=== PATIENT | female | born 1975 | race African-American/Black ===

== ENCOUNTER 2018-09-06 05:35 | Inpatient (IN) | payer BC, MEDICAID ==
[~2018-09-06] VITALS: Ht 170.2 cm; Wt 108.0 kg
[~2018-09-06 05:35] MED LIST: HYDR25TA PO; METF-444 PO
[2018-09-06] MEDS ORDERED: TOPI25 PO (06:07)
[2018-09-06] MEDS ORDERED: LISI-660 PO (06:07)
[2018-09-06] MEDS ORDERED: NITROGLYCERIN 400 MCG/SUBLINGUAL SPRAY 4.9 GM BOTTLE SL ONE (06:45)
[2018-09-06 07:05] LABS: GLUCOSE,POINT OF CARE 106 MG/DL (70-110)
[2018-09-06 07:24] LABS: BASOPHILS % (AUTO) 0.4 % (0.0-2.0); EOSINOPHILS % (AUTO) 5.1 % (1.0-6.0); HEMATOCRIT 38.9 % (36-46); HEMOGLOBIN 12.1 g/dL (12.0-16.0); LYMPHOCYTES # (AUTO) 2.2 K/uL (1.0-4.8); LYMPHOCYTES % (AUTO) 27.9 % (22.0-44.0); MEAN CORPUSCULAR HEMOGLOBIN 26.7 pg (26.0-34.0); MEAN CORPUSCULAR HGB CONC 31.2 G/dL (31.0-37.0); MEAN CORPUSCULAR VOLUME 86 fL (80-100); MONOCYTES # (AUTO) 0.3 K/uL (0.1-1.0); MONOCYTES % (AUTO) 3.4 % (2.0-9.0); NEUTROPHILS # (AUTO) 4.9 K/uL (1.8-7.7); NEUTROPHILS % (AUTO) 63.2 % (40.0-70.0); PLATELET COUNT (AUTO) 305 K/uL (150-450); RED BLOOD CELL COUNT(AUTO) 4.55 MIL/uL (4.00-5.20); RED CELL DISTRIBUTION WIDTH 15.2 % (11.5-14.5)
[2018-09-06] MEDS ORDERED: ONDANSETRON HCL 4 MG/2 ML VIAL IVP ONE (07:30)
[2018-09-06] MEDS ORDERED: MORPHINE SULFATE 2 MG/ML SYRINGE IVP ONE (07:30)
[2018-09-06 07:36] LABS: INR 0.9 (0.9-1.1); PROTHROMBIN TIME 9.4 SEC (9.4-11.6)
[2018-09-06 08:06] LABS: ANION GAP 10 mmol/L (8-16); CALCIUM, TOTAL 9.4 mg/dL (8.8-10.5); CARBON DIOXIDE 21 mmol/L (22-29); CHLORIDE 108 mmol/L (98-107); CREATININE 0.94 mg/dL (0.60-1.30); GLOMERULAR FILTR. RATE CALC > 60 mL/min (>60); GLUCOSE,RANDOM 85 mg/dL (70-110); POTASSIUM 3.7 mmol/L (3.5-5.1); SODIUM SERUM 139 mmol/L (136-145); UREA NITROGEN, BLOOD 14 mg/dL (7-18)
[2018-09-06 08:19] LABS: B-TYPE NATRIURETIC PEPTIDE 12 pg/mL (0-100)
[2018-09-06 08:31] LABS: ALANINE AMINOTRANSFERASE 11 U/L (12-78); ALBUMIN 3.3 g/dL (3.4-5.0); ALKALINE PHOSPHATASE 60 U/L (46-116); ASPARTATE AMINOTRANSFERASE 14 U/L (15-37); BILIRUBIN,TOTAL 0.2 mg/dL (0.1-1.0); CREATINE KINASE, TOTAL ONLY 98 U/L (26-192); HCG,QUANTITATIVE < 1 mIU/mL (0-6); TOTAL PROTEIN, SERUM 7.2 g/dL (6.4-8.2)
[2018-09-06 09:10] LABS: AMPHET/METH SCREEN,URINE POSITIVE (NEGATIVE); BARBITURATE SCREEN, URINE NEGATIVE (NEGATIVE); BENZODIAZEPINES SCREEN,URINE NEGATIVE (NEGATIVE); CANNABINOID SCREEN,URINE NEGATIVE (NEGATIVE); COCAINE SCREEN,URINE NEGATIVE (NEGATIVE); METHADONE SCREEN, URINE NEGATIVE (NEGATIVE); OPIATE SCREEN,URINE POSITIVE (NEGATIVE)
[2018-09-06 09:11] LABS: PHENCYCLIDINE SCREEN,URINE NEGATIVE (NEGATIVE)
[2018-09-06 09:21] LABS: APPEARANCE,URINE CLEAR (CLEAR); BILIRUBIN,URINE NEGATIVE (NEGATIVE); GLUCOSE, URINE (UA) NEGATIVE (NEGATIVE); KETONES,URINE NEGATIVE (NEGATIVE); LEUKOCYTE ESTERASE ,URINE NEGATIVE (NEGATIVE); NITRATE,URINE NEGATIVE (NEGATIVE); OCCULT BLOOD,URINE NEGATIVE (NEGATIVE); PROTEIN,URINE NEGATIVE (NEGATIVE)
[2018-09-06 11:49] VITALS: BP 133/74
[2018-09-06] MEDS ORDERED: ACETAMINOPHEN 325 MG TABLET PO PRN (12:45)
[2018-09-06] MEDS ORDERED: DOCUSATE SODIUM 100 MG CAPSULE PO SCH (21:00)
== END 2018-09-06 12:30 | disposition left against medical advice (07) | DRG 311 ==
LOC: EMS 05:35 → 5S 10:20
PROVIDERS: ADMIT Internal Medicine; ATTEND Internal Medicine
DX: I24.8 Other forms of acute ischemic heart disease (principal); E11.9 Type 2 diabetes mellitus without complications; E66.01 Morbid (severe) obesity due to excess calories; Z53.21 Procedure and treatment not carried out due to patient leaving prior to being seen by health care provider; F15.90 Other stimulant use, unspecified, uncomplicated; I10 Essential (primary) hypertension; I25.10 Atherosclerotic heart disease of native coronary artery without angina pectoris; Z90.49 Acquired absence of other specified parts of digestive tract; Z91.14 Patient's other noncompliance with medication regimen; Z95.5 Presence of coronary angioplasty implant and graft; Z88.1 Allergy status to other antibiotic agents; Z79.899 Other long term (current) drug therapy; Z79.84 Long term (current) use of oral hypoglycemic drugs
CPT/HCPCS: 93005; 93970; 96374; 96375; 99291; G0480; J2270; J2405

== ENCOUNTER 2019-04-09 21:24 | Emergency (ER) | payer SELFPAY ==
[~2019-04-09] VITALS: Ht 170.2 cm; Wt 126.4 kg
[~2019-04-09 21:24] MED LIST changes: -HYDR25TA PO; +LISI-660 PO; +TOPI25 PO
[2019-04-09 21:44] LABS: GLUCOSE,POINT OF CARE 108 MG/DL (70-110)
[2019-04-09] MEDS ORDERED: FUROSEMIDE 40 MG/4 ML VIAL IVP ONE (22:15)
[2019-04-09 22:27] LABS: BASOPHILS % (AUTO) 0.5 % (0.0-2.0); EOSINOPHILS % (AUTO) 2.7 % (1.0-6.0); HEMATOCRIT 33.9 % (36-46); HEMOGLOBIN 10.8 g/dL (12.0-16.0); LYMPHOCYTES # (AUTO) 3.5 K/uL (1.0-4.8); LYMPHOCYTES % (AUTO) 23.5 % (22.0-44.0); MEAN CORPUSCULAR HEMOGLOBIN 25.6 pg (26.0-34.0); MEAN CORPUSCULAR HGB CONC 31.9 G/dL (31.0-37.0); MEAN CORPUSCULAR VOLUME 80 fL (80-100); MONOCYTES # (AUTO) 0.7 K/uL (0.1-1.0); MONOCYTES % (AUTO) 4.7 % (2.0-9.0); NEUTROPHILS # (AUTO) 10.3 K/uL (1.8-7.7); NEUTROPHILS % (AUTO) 68.6 % (40.0-70.0); PLATELET COUNT (AUTO) 353 K/uL (150-450); RED BLOOD CELL COUNT(AUTO) 4.23 MIL/uL (4.00-5.20); RED CELL DISTRIBUTION WIDTH 16.3 % (11.5-14.5)
[2019-04-09 22:34] LABS: ANION GAP 8 mmol/L (8-16); CARBON DIOXIDE 30 mmol/L (22-29); CHLORIDE 100 mmol/L (98-107); CREATININE 1.01 mg/dL (0.60-1.30); GLUCOSE,RANDOM 98 mg/dL (70-110); POTASSIUM 3.9 mmol/L (3.5-5.1); SODIUM SERUM 138 mmol/L (136-145); UREA NITROGEN, BLOOD 12 mg/dL (7-18)
[2019-04-09 22:35] LABS: CALCIUM, TOTAL 9.7 mg/dL (8.8-10.5); GLOMERULAR FILTR. RATE CALC > 60 mL/min (>60)
[2019-04-09 22:40] LABS: ALANINE AMINOTRANSFERASE 41 U/L (12-78); ALBUMIN 2.9 g/dL (3.4-5.0); ALKALINE PHOSPHATASE 192 U/L (46-116); ASPARTATE AMINOTRANSFERASE 24 U/L (15-37); BILIRUBIN,TOTAL 0.2 mg/dL (0.1-1.0); TOTAL PROTEIN, SERUM 7.6 g/dL (6.4-8.2)
[2019-04-09 22:54] LABS: B-TYPE NATRIURETIC PEPTIDE 122 pg/mL (0-100)
[2019-04-09] MEDS ORDERED: SODIUM CHLORIDE 0.9% 100 ML ONE (23:29)
[2019-04-09] MEDS ORDERED: IOVERSOL 350 MG/ML 150 ML VIAL ONE (23:29)
[2019-04-09] MEDS ORDERED: PENICILLIN G BENZATHINE LA 1,200,000 UNITS/2 ML SYRINGE IM ONE (23:30)
[2019-04-10] MEDS ORDERED: RIVAROXABAN 20 MG TABLET PO ONE (01:15)
[2019-04-10 01:38] VITALS: BP 137/90
== END 2019-04-10 02:28 | disposition left against medical advice (07) ==
LOC: EMS 21:24
DX: I11.0 Hypertensive heart disease with heart failure (principal); I50.9 Heart failure, unspecified; J02.0 Streptococcal pharyngitis; R79.1 Abnormal coagulation profile; M79.89 Other specified soft tissue disorders; E11.9 Type 2 diabetes mellitus without complications; Z90.89 Acquired absence of other organs; Z79.899 Other long term (current) drug therapy; Z79.84 Long term (current) use of oral hypoglycemic drugs; Z88.1 Allergy status to other antibiotic agents
CPT/HCPCS: 36415; 71045; 80053; 82962; 83735; 83880; 84484; 85025; 85379; 87430; 93005; 93970; 96372; 96374; 99285; J0561; J1940; J7050; Q9967

== ENCOUNTER → 2019-09-15 | Emergency (ER) | payer MEDICAID ==
[~2019-09-15] VITALS: Ht 170.2 cm; Wt 145.4 kg
[~2019-09-15] MED LIST changes: +ASPI-728 PO; +FURO40 PO
[2019-09-15 16:45] VITALS: BP 137/76
[2019-09-16 08:06] LABS: GLUCOSE,POINT OF CARE 130 MG/DL (70-110)
== END | disposition home or self-care (01) ==
LOC: EMS 16:44
DX: R60.0 Localized edema (principal); Z53.21 Procedure and treatment not carried out due to patient leaving prior to being seen by health care provider

== ENCOUNTER 2019-11-07 20:36 | Emergency (ER) | payer SELFPAY ==
[~2019-11-07] VITALS: Ht 172.7 cm; Wt 185.0 kg
[2019-11-07] MEDS ORDERED: TOPI100T37 PO (20:49)
[2019-11-07] MEDS ORDERED: FURO80 PO (20:49)
[2019-11-07] MEDS ORDERED: MORPHINE SULFATE 2 MG/ML SYRINGE IVP ONE (23:15)
[2019-11-07 23:28] LABS: BASOPHILS % (AUTO) 0.7 % (0.0-2.0); EOSINOPHILS % (AUTO) 3.5 % (1.0-6.0); HEMATOCRIT 35.2 % (36-46); LYMPHOCYTES # (AUTO) 2.5 K/uL (1.0-4.8); LYMPHOCYTES % (AUTO) 26.1 % (22.0-44.0); MEAN CORPUSCULAR HEMOGLOBIN 24.8 pg (26.0-34.0); MEAN CORPUSCULAR HGB CONC 31.2 G/dL (31.0-37.0); MEAN CORPUSCULAR VOLUME 80 fL (80-100); MONOCYTES # (AUTO) 0.5 K/uL (0.1-1.0); NEUTROPHILS # (AUTO) 6.2 K/uL (1.8-7.7); NEUTROPHILS % (AUTO) 64.7 % (40.0-70.0); PLATELET COUNT (AUTO) 359 K/uL (150-450); RED BLOOD CELL COUNT(AUTO) 4.41 MIL/uL (4.00-5.20); RED CELL DISTRIBUTION WIDTH 16.5 % (11.5-14.5)
[2019-11-08 00:12] LABS: ANION GAP 10 mmol/L (8-16); CALCIUM, TOTAL 8.5 mg/dL (8.8-10.5); CARBON DIOXIDE 28 mmol/L (22-29); CHLORIDE 103 mmol/L (98-107); CREATININE 1.05 mg/dL (0.60-1.30); GLOMERULAR FILTR. RATE CALC > 60 mL/min (>60); GLUCOSE,RANDOM 111 mg/dL (70-110); POTASSIUM 3.5 mmol/L (3.5-5.1); SODIUM SERUM 141 mmol/L (136-145); UREA NITROGEN, BLOOD 14 mg/dL (7-18)
[2019-11-08 00:14] LABS: B-TYPE NATRIURETIC PEPTIDE < 5 pg/mL (0-100)
[2019-11-08 00:23] LABS: ALANINE AMINOTRANSFERASE 23 U/L (12-78); ALBUMIN 3.2 g/dL (3.4-5.0); ALKALINE PHOSPHATASE 90 U/L (46-116); ASPARTATE AMINOTRANSFERASE 18 U/L (15-37); BILIRUBIN,TOTAL 0.2 mg/dL (0.1-1.0); HCG,QUANTITATIVE 1 mIU/mL (0-6); TOTAL PROTEIN, SERUM 6.8 g/dL (6.4-8.2)
[2019-11-08] MEDS ORDERED: FUROSEMIDE 40 MG/4 ML VIAL IVP ONE (00:45)
[2019-11-08 03:12] VITALS: BP 137/89
[2019-11-08 03:40] LABS: APPEARANCE,URINE CLEAR (CLEAR); BILIRUBIN,URINE NEGATIVE (NEGATIVE); GLUCOSE, URINE (UA) NEGATIVE (NEGATIVE); KETONES,URINE NEGATIVE (NEGATIVE); LEUKOCYTE ESTERASE ,URINE NEGATIVE (NEGATIVE); NITRATE,URINE NEGATIVE (NEGATIVE); OCCULT BLOOD,URINE LARGE (NEGATIVE); PH,URINE 6.5 (5.0-8.0); PROTEIN,URINE NEGATIVE (NEGATIVE); UROBILINOGEN,URINE 0.2 mg/dL (<=1.0)
[2019-11-08 03:56] LABS: RBC,URINE 51-100 /HPF (0-2)
[2019-11-08 03:57] LABS: BACTERIA,URINE Few /HPF (None Seen); WBC,URINE 0-2 /HPF (0-5)
== END 2019-11-08 03:18 | disposition home or self-care (01) ==
LOC: EMS 20:36
DX: R60.0 Localized edema (principal); F12.90 Cannabis use, unspecified, uncomplicated; F15.90 Other stimulant use, unspecified, uncomplicated; Z88.1 Allergy status to other antibiotic agents; Z79.82 Long term (current) use of aspirin; Z79.899 Other long term (current) drug therapy
CPT/HCPCS: 36415; 71045; 80053; 81001; 82962; 83880; 84484; 84702; 85025; 93005; 96374; 96375; 99285; J1940; J2270

== ENCOUNTER 2020-04-02 05:33 | Inpatient (IN) | payer MEDICAID ==
[~2020-04-02] VITALS: Ht 170.2 cm; Wt 160.0 kg
[~2020-04-02 05:33] MED LIST changes: +ASPI-1450 PO; -ASPI-728 PO; +FURO80 PO; -LISI-660 PO; +LISI-892 PO; +TOPI100T37 PO
[2020-04-02] MEDS ORDERED: LORazepam 2 MG/ML VIAL IVP ONE (05:45)
[2020-04-02] MEDS ORDERED: ACETAMINOPHEN 500 MG TABLET PO ONE (06:00)
[2020-04-02 06:08] LABS: COVID AG,FIA SOURCE NASOPHARYNGEAL
[2020-04-02 06:15] LABS: ANION GAP 10 mmol/L (8-16); CALCIUM, TOTAL 8.9 mg/dL (8.8-10.5); CARBON DIOXIDE 25 mmol/L (22-29); CHLORIDE 103 mmol/L (98-107); CREATININE 1.02 mg/dL (0.60-1.30); GLOMERULAR FILTR. RATE CALC > 60 mL/min (>60); GLUCOSE,RANDOM 141 mg/dL (70-110); POTASSIUM 3.9 mmol/L (3.5-5.1); SODIUM SERUM 138 mmol/L (136-145); UREA NITROGEN, BLOOD 16 mg/dL (7-18)
[2020-04-02 06:20] LABS: ALANINE AMINOTRANSFERASE 25 U/L (12-78); ALBUMIN 3.2 g/dL (3.4-5.0); ALKALINE PHOSPHATASE 119 U/L (46-116); ASPARTATE AMINOTRANSFERASE 16 U/L (15-37); BILIRUBIN,TOTAL 0.2 mg/dL (0.1-1.0); TOTAL PROTEIN, SERUM 7.6 g/dL (6.4-8.2)
[2020-04-02 06:41] LABS: BASOPHILS % (AUTO) 0.9 % (0.0-2.0); EOSINOPHILS % (AUTO) 4.8 % (1.0-6.0); HEMATOCRIT 38.4 % (36-46); LYMPHOCYTES % (AUTO) 35.6 % (22.0-44.0); MEAN CORPUSCULAR HEMOGLOBIN 24.4 pg (26.0-34.0); MEAN CORPUSCULAR HGB CONC 31.1 G/dL (31.0-37.0); MEAN CORPUSCULAR VOLUME 78 fL (80-100); MONOCYTES # (AUTO) 0.5 K/uL (0.1-1.0); NEUTROPHILS # (AUTO) 6.1 K/uL (1.8-7.7); NEUTROPHILS % (AUTO) 54.7 % (40.0-70.0); PLATELET COUNT (AUTO) 375 K/uL (150-450); RED CELL DISTRIBUTION WIDTH 16.8 % (11.5-14.5)
[2020-04-02 07:17] LABS: B-TYPE NATRIURETIC PEPTIDE 23 pg/mL (0-100)
[2020-04-02 07:38] LABS: AMPHET/METH SCREEN,URINE POSITIVE (NEGATIVE); BARBITURATE SCREEN, URINE NEGATIVE (NEGATIVE); BENZODIAZEPINES SCREEN,URINE NEGATIVE (NEGATIVE); CANNABINOID SCREEN,URINE POSITIVE (NEGATIVE); COCAINE SCREEN,URINE NEGATIVE (NEGATIVE); METHADONE SCREEN, URINE NEGATIVE (NEGATIVE); OPIATE SCREEN,URINE NEGATIVE (NEGATIVE); PHENCYCLIDINE SCREEN,URINE NEGATIVE (NEGATIVE)
[2020-04-02 08:18] LABS: APPEARANCE,URINE CLEAR (CLEAR); BILIRUBIN,URINE NEGATIVE (NEGATIVE); GLUCOSE, URINE (UA) NEGATIVE (NEGATIVE); KETONES,URINE NEGATIVE (NEGATIVE); LEUKOCYTE ESTERASE ,URINE NEGATIVE (NEGATIVE); NITRATE,URINE NEGATIVE (NEGATIVE); OCCULT BLOOD,URINE NEGATIVE (NEGATIVE); PH,URINE 6.5 (5.0-8.0); PROTEIN,URINE NEGATIVE (NEGATIVE); UROBILINOGEN,URINE 0.2 mg/dL (<=1.0)
[2020-04-02 08:20] LABS: BACTERIA,URINE None Seen /HPF (None Seen); RBC,URINE None Seen /HPF (0-2); SQUAMOUS EPITHELIAL CELL,UR Few /LPF (None Seen); WBC,URINE None Seen /HPF (0-5)
[2020-04-02] MEDS ORDERED: NITROGLYCERIN 2% (1 GM=INCH) PACKET TP ONE (08:30)
[2020-04-02] MEDS ORDERED: ASPIRIN 325 MG TABLET PO ONE (08:30)
[2020-04-02] MEDS ORDERED: 0.9% SODIUM CHLORIDE 10 ML SYRINGE IVP PRN (09:15)
[2020-04-02] MEDS ORDERED: ACETAMINOPHEN 325 MG TABLET PO PRN ×2 (09:15→11:30)
[2020-04-02] MEDS ORDERED: ONDANSETRON HCL 4 MG/2 ML VIAL IVP PRN ×2 (09:15→11:30)
[2020-04-02] MEDS ORDERED: ZOLPIDEM TARTRATE 5 MG TABLET PO PRN (11:30)
[2020-04-02] MEDS ORDERED: MAGNESIUM HYDROXIDE SUSPENSION 30 ML UDCUP PO PRN (11:30)
[2020-04-02] MEDS ORDERED: MORPHINE SULFATE 2 MG/ML SYRINGE IVP PRN (11:30)
[2020-04-02] MEDS ORDERED: BISACODYL 10 MG RECTAL RECTAL SUPPOSITORY PR PRN (11:30)
[2020-04-02] MEDS ORDERED: GuaiFENesin/D-METHORPHAN [SUGAR-FREE] 200-20MG/10 ML SYRUP UDCUP PO PRN (11:30)
[2020-04-02] MEDS ORDERED: HYDROCODONE/ACETAMINOPHEN 5-325 MG TABLET PO PRN (11:30)
[2020-04-02 11:45] VITALS: BP 143/83
[2020-04-02 12:38] VITALS: BP 143/83
[2020-04-02 15:37] VITALS: BP 136/74
[2020-04-02] MEDS ORDERED: HEPARIN SODIUM,PORCINE 5,000 UNITS/ML VIAL SQ SCH (16:00)
[2020-04-02] MEDS ORDERED: MetFORMIN HCL 500 MG TABLET PO SCH (17:30)
[2020-04-02] MEDS ORDERED: DOCUSATE SODIUM 100 MG CAPSULE PO SCH (21:00)
[2020-04-02] MEDS ORDERED: FUROSEMIDE 80 MG TABLET PO SCH (21:00)
[2020-04-02] MEDS ORDERED: NITROGLYCERIN 2% (1 GM=INCH) PACKET TP SCH (21:00)
[2020-04-02] MEDS ORDERED: TOPIRAMATE 100 MG TABLET PO SCH (21:00)
[2020-04-02] MEDS ORDERED: LISINOPRIL 5 MG TABLET PO SCH (21:00)
[2020-04-03] MEDS ORDERED: ASPIRIN 81 MG CHEWABLE TABLET PO SCH (09:00)
[2020-04-03] MEDS ORDERED: PANTOPRAZOLE SODIUM 40 MG DR TABLET PO SCH (09:00)
== END 2020-04-02 16:40 | disposition left against medical advice (07) | DRG 812 ==
LOC: EMS 05:33 → 5N 10:38
PROVIDERS: ADMIT Internal Medicine; ATTEND Internal Medicine
DX: T43.621A Poisoning by amphetamines, accidental (unintentional), initial encounter (principal); I11.0 Hypertensive heart disease with heart failure; I50.9 Heart failure, unspecified; E66.01 Morbid (severe) obesity due to excess calories; E78.5 Hyperlipidemia, unspecified; I42.9 Cardiomyopathy, unspecified; E11.9 Type 2 diabetes mellitus without complications; I16.0 Hypertensive urgency; F12.90 Cannabis use, unspecified, uncomplicated; I24.8 Other forms of acute ischemic heart disease; F15.10 Other stimulant abuse, uncomplicated; Z20.822 Contact with and (suspected) exposure to COVID-19; I25.10 Atherosclerotic heart disease of native coronary artery without angina pectoris; K21.9 Gastro-esophageal reflux disease without esophagitis; Z79.84 Long term (current) use of oral hypoglycemic drugs; Z79.82 Long term (current) use of aspirin; Z95.5 Presence of coronary angioplasty implant and graft; Z90.49 Acquired absence of other specified parts of digestive tract; Z88.8 Allergy status to other drugs, medicaments and biological substances; Z68.43 Body mass index [BMI] 50.0-59.9, adult; Z79.899 Other long term (current) drug therapy; Y92.89 Other specified places as the place of occurrence of the external cause
CPT/HCPCS: 70450; 82948; 83735; 87426; 93005; 99285; J1644; J2060; 36415-L1; 36415-TC; 71045-TC; 84703-TC; U0003

== ENCOUNTER 2020-05-25 09:27 | Emergency (ER) | payer MEDICAID ==
[~2020-05-25] VITALS: Ht 177.8 cm; Wt 145.4 kg
[~2020-05-25 09:27] MED LIST changes: -FURO40 PO; -TOPI25 PO
[2020-05-25] MEDS ORDERED: LORazepam 2 MG/ML VIAL IVP ONE (09:45)
[2020-05-25 09:58] LABS: GLUCOSE,POINT OF CARE 129 MG/DL (70-110)
[2020-05-25 10:01] LABS: BASOPHILS % (AUTO) 0.9 % (0.0-2.0); EOSINOPHILS % (AUTO) 4.1 % (1.0-6.0); HEMATOCRIT 41.6 % (36-46); HEMOGLOBIN 13.1 g/dL (12.0-16.0); LYMPHOCYTES # (AUTO) 2.9 K/uL (1.0-4.8); LYMPHOCYTES % (AUTO) 25.5 % (22.0-44.0); MEAN CORPUSCULAR HEMOGLOBIN 24.3 pg (26.0-34.0); MEAN CORPUSCULAR HGB CONC 31.4 G/dL (31.0-37.0); MEAN CORPUSCULAR VOLUME 78 fL (80-100); MONOCYTES # (AUTO) 0.5 K/uL (0.1-1.0); MONOCYTES % (AUTO) 4.7 % (2.0-9.0); NEUTROPHILS # (AUTO) 7.4 K/uL (1.8-7.7); NEUTROPHILS % (AUTO) 64.8 % (40.0-70.0); PLATELET COUNT (AUTO) 406 K/uL (150-450); RED BLOOD CELL COUNT(AUTO) 5.37 MIL/uL (4.00-5.20); RED CELL DISTRIBUTION WIDTH 17.1 % (11.5-14.5)
[2020-05-25 10:13] LABS: ANION GAP 14 mmol/L (8-16); CALCIUM, TOTAL 9.4 mg/dL (8.8-10.5); CARBON DIOXIDE 28 mmol/L (22-29); CHLORIDE 98 mmol/L (98-107); CREATININE 1.14 mg/dL (0.60-1.30); GLOMERULAR FILTR. RATE CALC > 60 mL/min (>60); GLUCOSE,RANDOM 130 mg/dL (70-110); POTASSIUM 3.8 mmol/L (3.5-5.1); PROTHROMBIN TIME 10.3 SEC (9.4-11.6); SODIUM SERUM 140 mmol/L (136-145); UREA NITROGEN, BLOOD 21 mg/dL (7-18)
[2020-05-25 10:23] LABS: ALANINE AMINOTRANSFERASE 29 U/L (12-78); ALBUMIN 3.8 g/dL (3.4-5.0); ALKALINE PHOSPHATASE 126 U/L (46-116); ASPARTATE AMINOTRANSFERASE 17 U/L (15-37); BILIRUBIN,TOTAL 0.3 mg/dL (0.1-1.0); HCG,QUANTITATIVE < 1 mIU/mL (0-6); LIPASE 114 U/L (73-393); TOTAL PROTEIN, SERUM 8.5 g/dL (6.4-8.2)
[2020-05-25 11:19] LABS: LACTIC ACID 1.5 mmol/L (0.4-2.0)
[2020-05-25 12:23] LABS: COVID AG,FIA SOURCE NASOPHARYNGEAL
[2020-05-25 12:28] LABS: APPEARANCE,URINE CLEAR (CLEAR); BILIRUBIN,URINE NEGATIVE (NEGATIVE); GLUCOSE, URINE (UA) NEGATIVE (NEGATIVE); KETONES,URINE NEGATIVE (NEGATIVE); LEUKOCYTE ESTERASE ,URINE NEGATIVE (NEGATIVE); NITRATE,URINE NEGATIVE (NEGATIVE); OCCULT BLOOD,URINE NEGATIVE (NEGATIVE); PROTEIN,URINE TRACE (NEGATIVE); UROBILINOGEN,URINE 0.2 mg/dL (<=1.0)
[2020-05-25 12:32] LABS: AMPHET/METH SCREEN,URINE POSITIVE (NEGATIVE); BARBITURATE SCREEN, URINE NEGATIVE (NEGATIVE); BENZODIAZEPINES SCREEN,URINE NEGATIVE (NEGATIVE); CANNABINOID SCREEN,URINE POSITIVE (NEGATIVE); COCAINE SCREEN,URINE NEGATIVE (NEGATIVE); METHADONE SCREEN, URINE NEGATIVE (NEGATIVE); OPIATE SCREEN,URINE NEGATIVE (NEGATIVE)
[2020-05-25 12:33] LABS: PHENCYCLIDINE SCREEN,URINE POSITIVE (NEGATIVE)
[2020-05-25] MEDS ORDERED: LevETIRAcetam 500 MG in DEXTROSE 5%-WATER 100 ML IV ONE (12:45)
[2020-05-25] MEDS ORDERED: KETOROLAC TROMETHAMINE 30 MG/ML VIAL IVP ONE (12:45)
[2020-05-25 13:07] LABS: D-DIMER 0.38 mg/L FEU (0.00-0.50)
[2020-05-25 13:20] VITALS: BP 136/106
[2020-05-25 13:44] LABS: BACTERIA,URINE None Seen /HPF (None Seen); RBC,URINE None Seen /HPF (0-2); SQUAMOUS EPITHELIAL CELL,UR Few /LPF (None Seen); WBC,URINE None Seen /HPF (0-5)
== END 2020-05-25 14:22 | disposition home or self-care (01) ==
LOC: EMS 09:29
DX: R07.9 Chest pain, unspecified (principal); F15.921 Other stimulant use, unspecified with intoxication delirium; I11.0 Hypertensive heart disease with heart failure; I50.9 Heart failure, unspecified; E11.9 Type 2 diabetes mellitus without complications; F17.210 Nicotine dependence, cigarettes, uncomplicated; F12.90 Cannabis use, unspecified, uncomplicated; Z20.822 Contact with and (suspected) exposure to COVID-19; Z90.89 Acquired absence of other organs; Z88.5 Allergy status to narcotic agent; Z79.899 Other long term (current) drug therapy; Z79.82 Long term (current) use of aspirin
CPT/HCPCS: 36415; 70450; 71045; 80053; 80307; 81001; 82962; 83605; 83690; 84484; 84702; 85025; 85379; 85610; 87426; 93005; 96374; 96375; 99291; G0480; J0712; J1885; J2060; J7060; 51701; 82948

== ENCOUNTER 2021-02-01 07:53 | Emergency (ER) | payer MEDICAID ==
[~2021-02-01] VITALS: Ht 170.2 cm; Wt 156.0 kg
[~2021-02-01 07:53] MED LIST changes: -FURO80 PO; -LISI-892 PO
[2021-02-01 09:54] LABS: BASOPHILS % (AUTO) 0.8 % (0.0-2.0); EOSINOPHILS % (AUTO) 4.5 % (1.0-6.0); HEMATOCRIT 35.9 % (36-46); HEMOGLOBIN 11.4 g/dL (12.0-16.0); LYMPHOCYTES # (AUTO) 1.9 K/uL (1.0-4.8); LYMPHOCYTES % (AUTO) 19.6 % (22.0-44.0); MEAN CORPUSCULAR HEMOGLOBIN 24.4 pg (26.0-34.0); MEAN CORPUSCULAR HGB CONC 31.9 G/dL (31.0-37.0); MEAN CORPUSCULAR VOLUME 77 fL (80-100); MONOCYTES # (AUTO) 0.5 K/uL (0.1-1.0); MONOCYTES % (AUTO) 5.1 % (2.0-9.0); NEUTROPHILS # (AUTO) 6.7 K/uL (1.8-7.7); PLATELET COUNT (AUTO) 394 K/uL (150-450); RED BLOOD CELL COUNT(AUTO) 4.69 MIL/uL (4.00-5.20); RED CELL DISTRIBUTION WIDTH 17.8 % (11.5-14.5)
[2021-02-01 10:04] LABS: ANION GAP 8 mmol/L (8-16); CALCIUM, TOTAL 9.4 mg/dL (8.8-10.5); CARBON DIOXIDE 23 mmol/L (22-29); CHLORIDE 108 mmol/L (98-107); GLOMERULAR FILTR. RATE CALC > 60 mL/min (>60); GLUCOSE,RANDOM 105 mg/dL (70-110); POTASSIUM 3.9 mmol/L (3.5-5.1); SODIUM SERUM 139 mmol/L (136-145); UREA NITROGEN, BLOOD 15 mg/dL (7-18)
[2021-02-01 10:15] LABS: ALANINE AMINOTRANSFERASE 31 U/L (12-78); ALKALINE PHOSPHATASE 130 U/L (46-116); ASPARTATE AMINOTRANSFERASE 20 U/L (15-37); BILIRUBIN,TOTAL 0.2 mg/dL (0.1-1.0); LIPASE 92 U/L (73-393); TOTAL PROTEIN, SERUM 7.1 g/dL (6.4-8.2)
[2021-02-01 10:22] LABS: B-TYPE NATRIURETIC PEPTIDE 98 pg/mL (0-100)
[2021-02-01 10:39] LABS: COVID AG,FIA SOURCE NASOPHARYNGEAL
[2021-02-01] MEDS ORDERED: ACETAMINOPHEN 500 MG TABLET PO ONE (10:45)
[2021-02-01] MEDS ORDERED: FUROSEMIDE 40 MG/4 ML VIAL IVP ONE (10:45)
[2021-02-01] MEDS ORDERED: KETOROLAC TROMETHAMINE 30 MG/ML VIAL IVP ONE (10:45)
[2021-02-01 11:00] LABS: INFLUENZA TYPE A NEGATIVE FOR TYPE A (NEGATIVE); INFLUENZA TYPE B NEGATIVE FOR TYPE B (NEGATIVE)
[2021-02-01 11:40] VITALS: BP 157/97
== END 2021-02-01 13:29 | disposition home or self-care (01) ==
LOC: EMS 07:53
DX: R07.89 Other chest pain (principal); F41.9 Anxiety disorder, unspecified; N39.0 Urinary tract infection, site not specified; J06.9 Acute upper respiratory infection, unspecified; E78.00 Pure hypercholesterolemia, unspecified; F17.210 Nicotine dependence, cigarettes, uncomplicated; I11.0 Hypertensive heart disease with heart failure; I50.9 Heart failure, unspecified; F12.90 Cannabis use, unspecified, uncomplicated; F15.90 Other stimulant use, unspecified, uncomplicated; Z86.79 Personal history of other diseases of the circulatory system; Z20.822 Contact with and (suspected) exposure to COVID-19; Z90.49 Acquired absence of other specified parts of digestive tract; Z79.84 Long term (current) use of oral hypoglycemic drugs
CPT/HCPCS: 36415; 71045; 80053; 83690; 83880; 84484; 84703; 85025; 87426; 87804; 93005; 96374; 96375; 99285; G0480; J1885; J1940

== ENCOUNTER 2021-02-05 14:21 | Emergency (ER) | payer MEDICAID ==
[~2021-02-05] VITALS: Ht 172.7 cm; Wt 113.6 kg
[2021-02-05 14:33] VITALS: BP 164/84
== END 2021-02-05 16:18 | disposition left against medical advice (07) ==
LOC: EMS 14:23
DX: N39.0 Urinary tract infection, site not specified (principal); Z53.21 Procedure and treatment not carried out due to patient leaving prior to being seen by health care provider

== ENCOUNTER 2021-02-27 01:48 | Emergency (ER) | payer MEDICAID ==
[~2021-02-27] VITALS: Ht 170.2 cm; Wt 278.0 kg
[2021-02-27] MEDS ORDERED: LEVE250T4 PO (01:57)
[2021-02-27] MEDS ORDERED: FURO40 PO (01:57)
[2021-02-27 03:00] VITALS: BP 137/82
[2021-02-27] MEDS ORDERED: CEPHALEXIN MONOHYDRATE 500 MG CAPSULE PO ONE (03:30)
[2021-02-27] MEDS ORDERED: ACETAMINOPHEN 500 MG TABLET PO ONE (03:30)
[2021-02-27] MEDS ORDERED: NEOMYCIN/POLYMYXIN B/HYDROCORT 10 ML OTIC SUSPENSION AS ONE (03:30)
== END 2021-02-27 03:46 | disposition home or self-care (01) ==
LOC: EMS 01:50
DX: H60.92 Unspecified otitis externa, left ear (principal); H66.92 Otitis media, unspecified, left ear; I11.0 Hypertensive heart disease with heart failure; I50.9 Heart failure, unspecified; E78.00 Pure hypercholesterolemia, unspecified; E11.9 Type 2 diabetes mellitus without complications; F17.210 Nicotine dependence, cigarettes, uncomplicated; F12.90 Cannabis use, unspecified, uncomplicated; F15.90 Other stimulant use, unspecified, uncomplicated; Z88.1 Allergy status to other antibiotic agents; Z79.899 Other long term (current) drug therapy
CPT/HCPCS: 82962; 99284

== ENCOUNTER 2021-04-27 05:30 | Emergency (ER) | payer MEDICAID ==
[~2021-04-27] VITALS: Ht 170.2 cm; Wt 118.2 kg
[~2021-04-27 05:30] MED LIST changes: +FURO40 PO; +LEVE250T4 PO
[2021-04-27 05:54] LABS: BASOPHILS % (AUTO) 0.9 % (0.0-2.0); EOSINOPHILS % (AUTO) 3.1 % (1.0-6.0); HEMOGLOBIN 12.8 g/dL (12.0-16.0); LYMPHOCYTES # (AUTO) 2.7 K/uL (1.0-4.8); LYMPHOCYTES % (AUTO) 22.2 % (22.0-44.0); MEAN CORPUSCULAR HEMOGLOBIN 24.5 pg (26.0-34.0); MEAN CORPUSCULAR VOLUME 76 fL (80-100); MONOCYTES # (AUTO) 0.4 K/uL (0.1-1.0); MONOCYTES % (AUTO) 3.4 % (2.0-9.0); NEUTROPHILS # (AUTO) 8.7 K/uL (1.8-7.7); NEUTROPHILS % (AUTO) 70.4 % (40.0-70.0); PLATELET COUNT (AUTO) 456 K/uL (150-450); RED BLOOD CELL COUNT(AUTO) 5.23 MIL/uL (4.00-5.20)
[2021-04-27 06:01] LABS: ANION GAP 11 mmol/L (8-16); CALCIUM, TOTAL 9.6 mg/dL (8.8-10.5); CARBON DIOXIDE 26 mmol/L (22-29); CHLORIDE 97 mmol/L (98-107); GLOMERULAR FILTR. RATE CALC > 60 mL/min (>60); GLUCOSE,RANDOM 166 mg/dL (70-110); POTASSIUM 3.9 mmol/L (3.5-5.1); SODIUM SERUM 134 mmol/L (136-145); UREA NITROGEN, BLOOD 20 mg/dL (7-18)
[2021-04-27 06:06] LABS: ALANINE AMINOTRANSFERASE 36 U/L (12-78); ALBUMIN 3.4 g/dL (3.4-5.0); ALKALINE PHOSPHATASE 156 U/L (46-116); ASPARTATE AMINOTRANSFERASE 22 U/L (15-37); BILIRUBIN,TOTAL 0.3 mg/dL (0.1-1.0); TOTAL PROTEIN, SERUM 8.4 g/dL (6.4-8.2)
[2021-04-27 06:20] LABS: B-TYPE NATRIURETIC PEPTIDE < 5 pg/mL (0-100)
[2021-04-27 08:00] VITALS: BP 132/85
[2021-04-27 09:20] LABS: APPEARANCE,URINE CLEAR (CLEAR); BILIRUBIN,URINE NEGATIVE (NEGATIVE); GLUCOSE, URINE (UA) NEGATIVE (NEGATIVE); KETONES,URINE NEGATIVE (NEGATIVE); LEUKOCYTE ESTERASE ,URINE TRACE (NEGATIVE); NITRATE,URINE NEGATIVE (NEGATIVE); OCCULT BLOOD,URINE NEGATIVE (NEGATIVE); PH,URINE 6.5 (5.0-8.0); PROTEIN,URINE TRACE mg/dL (NEGATIVE); SPECIFIC GRAVITIY, URINE 1.024 (1.003-1.030); UROBILINOGEN,URINE <=1.0 mg/dL (<=1.0)
[2021-04-27 09:26] LABS: AMPHET/METH SCREEN,URINE POSITIVE (NEGATIVE); BARBITURATE SCREEN, URINE NEGATIVE (NEGATIVE); BENZODIAZEPINES SCREEN,URINE NEGATIVE (NEGATIVE); CANNABINOID SCREEN,URINE NEGATIVE (NEGATIVE); COCAINE SCREEN,URINE NEGATIVE (NEGATIVE); METHADONE SCREEN, URINE NEGATIVE (NEGATIVE); OPIATE SCREEN,URINE NEGATIVE (NEGATIVE)
[2021-04-27 09:36] LABS: PHENCYCLIDINE SCREEN,URINE POSITIVE (NEGATIVE)
[2021-04-27 10:00] LABS: BACTERIA,URINE Few /HPF (None Seen); SQUAMOUS EPITHELIAL CELL,UR Few /LPF (None Seen)
== END 2021-04-27 09:37 | disposition home or self-care (01) ==
LOC: EMS 05:35
DX: R06.00 Dyspnea, unspecified (principal); R06.02 Shortness of breath; R56.9 Unspecified convulsions; I11.0 Hypertensive heart disease with heart failure; I50.9 Heart failure, unspecified; E78.00 Pure hypercholesterolemia, unspecified; F17.210 Nicotine dependence, cigarettes, uncomplicated; F12.90 Cannabis use, unspecified, uncomplicated; F19.90 Other psychoactive substance use, unspecified, uncomplicated; Z90.89 Acquired absence of other organs; Z88.8 Allergy status to other drugs, medicaments and biological substances; Z79.82 Long term (current) use of aspirin; Z79.899 Other long term (current) drug therapy
CPT/HCPCS: 71045; 80053; 81001; 83880; 84484; 84703; 85025; 93005; 99285; 36415-L1; 36415-TC

== ENCOUNTER 2021-06-30 08:25 | Emergency (ER) | payer MEDICAID ==
[~2021-06-30] VITALS: Ht 170.2 cm; Wt 147.3 kg
[2021-06-30 09:13] VITALS: BP 161/93
[2021-06-30] MEDS ORDERED: HYDR-3831 PO (10:04)
[2021-06-30] MEDS ORDERED: NYST15PO4 TP (10:04)
== END 2021-06-30 10:32 | disposition home or self-care (01) ==
LOC: EMS 08:25
DX: R21 Rash and other nonspecific skin eruption (principal); E11.9 Type 2 diabetes mellitus without complications; I10 Essential (primary) hypertension; Z86.69 Personal history of other diseases of the nervous system and sense organs; Z98.890 Other specified postprocedural states; Z88.1 Allergy status to other antibiotic agents
CPT/HCPCS: 87045; 99283

== ENCOUNTER 2021-07-23 10:41 | Emergency (ER) | payer MEDICAID ==
[~2021-07-23] VITALS: Ht 170.2 cm; Wt 147.3 kg
[~2021-07-23 10:41] MED LIST changes: +HYDR-3831 PO; +NYST15PO4 TP
[2021-07-23 12:13] LABS: COVID AG,FIA SOURCE NASAL SWAB
[2021-07-23 12:55] LABS: APPEARANCE,URINE HAZY (CLEAR); BILIRUBIN,URINE NEGATIVE (NEGATIVE); GLUCOSE, URINE (UA) NEGATIVE (NEGATIVE); KETONES,URINE NEGATIVE (NEGATIVE); LEUKOCYTE ESTERASE ,URINE TRACE (NEGATIVE); NITRATE,URINE NEGATIVE (NEGATIVE); OCCULT BLOOD,URINE NEGATIVE (NEGATIVE); PROTEIN,URINE NEGATIVE (NEGATIVE); SPECIFIC GRAVITIY, URINE 1.016 (1.003-1.030); UROBILINOGEN,URINE <=1.0 mg/dL (<=1.0)
[2021-07-23 13:13] LABS: BASOPHILS % (AUTO) 0.8 % (0.0-2.0); EOSINOPHILS % (AUTO) 2.8 % (1.0-6.0); HEMATOCRIT 38.4 % (36-46); HEMOGLOBIN 12.2 g/dL (12.0-16.0); LYMPHOCYTES # (AUTO) 3.4 K/uL (1.0-4.8); MEAN CORPUSCULAR HEMOGLOBIN 24.6 pg (26.0-34.0); MEAN CORPUSCULAR HGB CONC 31.8 G/dL (31.0-37.0); MEAN CORPUSCULAR VOLUME 77 fL (80-100); MONOCYTES # (AUTO) 0.4 K/uL (0.1-1.0); NEUTROPHILS # (AUTO) 6.4 K/uL (1.8-7.7); NEUTROPHILS % (AUTO) 60.4 % (40.0-70.0); PLATELET COUNT (AUTO) 369 K/uL (150-450); RED BLOOD CELL COUNT(AUTO) 4.97 MIL/uL (4.00-5.20); RED CELL DISTRIBUTION WIDTH 17.6 % (11.5-14.5)
[2021-07-23] MEDS ORDERED: NITROGLYCERIN 2% (1 GM=INCH) PACKET TP ONE (13:15)
[2021-07-23] MEDS ORDERED: ASPIRIN 81 MG CHEWABLE TABLET PO ONE (13:15)
[2021-07-23 13:24] LABS: BACTERIA,URINE None Seen /HPF (None Seen); RBC,URINE None Seen /HPF (0-2); SQUAMOUS EPITHELIAL CELL,UR Few /LPF (None Seen)
[2021-07-23 13:25] LABS: AMORPHOUS SEDIMENT,UR Moderate /LPF (None Seen)
[2021-07-23 13:26] LABS: ANION GAP 8 mmol/L (8-16); CALCIUM, TOTAL 9.2 mg/dL (8.8-10.5); CARBON DIOXIDE 25 mmol/L (22-29); CHLORIDE 104 mmol/L (98-107); GLOMERULAR FILTR. RATE CALC > 60 mL/min (>60); GLUCOSE,RANDOM 98 mg/dL (70-110); POTASSIUM 4.3 mmol/L (3.5-5.1); SODIUM SERUM 137 mmol/L (136-145); UREA NITROGEN, BLOOD 13 mg/dL (7-18)
[2021-07-23 13:26] LABS: AMPHET/METH SCREEN,URINE POSITIVE (NEGATIVE); BARBITURATE SCREEN, URINE NEGATIVE (NEGATIVE); BENZODIAZEPINES SCREEN,URINE NEGATIVE (NEGATIVE); CANNABINOID SCREEN,URINE POSITIVE (NEGATIVE); COCAINE SCREEN,URINE NEGATIVE (NEGATIVE); METHADONE SCREEN, URINE NEGATIVE (NEGATIVE); OPIATE SCREEN,URINE NEGATIVE (NEGATIVE); PHENCYCLIDINE SCREEN,URINE POSITIVE (NEGATIVE)
[2021-07-23 13:39] LABS: B-TYPE NATRIURETIC PEPTIDE 97 pg/mL (0-100)
[2021-07-23 13:50] LABS: ALANINE AMINOTRANSFERASE 24 U/L (12-78); ALBUMIN 3.2 g/dL (3.4-5.0); ALKALINE PHOSPHATASE 126 U/L (46-116); ASPARTATE AMINOTRANSFERASE 16 U/L (15-37); BILIRUBIN,TOTAL 0.1 mg/dL (0.1-1.0); CREATINE KINASE, TOTAL ONLY 84 U/L (26-192); TOTAL PROTEIN, SERUM 7.6 g/dL (6.4-8.2)
[2021-07-23 14:20] LABS: HCG,QUANTITATIVE < 1 mIU/mL (0-6)
[2021-07-23] MEDS ORDERED: FUROSEMIDE 40 MG/4 ML VIAL IVP ONE (14:30)
[2021-07-23] MEDS ORDERED: FUROSEMIDE 20 MG TABLET PO ONE (15:30)
[2021-07-23 15:40] VITALS: BP 148/88
== END 2021-07-23 15:41 | disposition home or self-care (01) ==
LOC: EMS 10:52
DX: F15.10 Other stimulant abuse, uncomplicated (principal); F16.10 Hallucinogen abuse, uncomplicated; F41.9 Anxiety disorder, unspecified; I11.0 Hypertensive heart disease with heart failure; I50.9 Heart failure, unspecified; E11.9 Type 2 diabetes mellitus without complications; F17.210 Nicotine dependence, cigarettes, uncomplicated; F12.90 Cannabis use, unspecified, uncomplicated; R11.2 Nausea with vomiting, unspecified; R60.0 Localized edema; Z86.69 Personal history of other diseases of the nervous system and sense organs; Z90.49 Acquired absence of other specified parts of digestive tract; Z98.890 Other specified postprocedural states; Z88.1 Allergy status to other antibiotic agents; Z20.822 Contact with and (suspected) exposure to COVID-19
CPT/HCPCS: 36415; 71045; 80053; 80307; 81001; 82550; 83880; 84484; 84702; 85025; 87426; 93005; 99285; G0480; J1940

== ENCOUNTER 2021-08-25 06:25 | Emergency (ER) | payer MEDICAID ==
[~2021-08-25] VITALS: Ht 170.2 cm; Wt 121.4 kg
[2021-08-25] MEDS ORDERED: OXYC1TAB6 PO (06:50)
[2021-08-25] MEDS ORDERED: BACTDSB PO (06:50)
[2021-08-25] MEDS ORDERED: AMLO5TAB66 PO (06:50)
[2021-08-25 07:01] LABS: COVID AG,FIA SOURCE NASOPHARYNGEAL
[2021-08-25 07:34] LABS: INFLUENZA TYPE A NEGATIVE FOR TYPE A (NEGATIVE); INFLUENZA TYPE B NEGATIVE FOR TYPE B (NEGATIVE)
[2021-08-25] MEDS: KETOROLAC TROMETHAMINE 30 MG/ML VIAL IM ONE (08:09)
[2021-08-25] MEDS: NEOMYCIN/POLYMYXIN B/HYDROCORT 10 ML OTIC SOLUTION AS ONE (08:09)
[2021-08-25] MEDS: PERMETHRIN 5% 60 GM CREAM TP ONE (08:09)
[2021-08-25 08:27] VITALS: BP 150/93
== END 2021-08-25 08:33 | disposition home or self-care (01) ==
LOC: EMS 06:27
DX: H60.92 Unspecified otitis externa, left ear (principal); M77.52 Other enthesopathy of left foot and ankle; B86 Scabies; I11.0 Hypertensive heart disease with heart failure; I50.9 Heart failure, unspecified; E11.9 Type 2 diabetes mellitus without complications; F12.90 Cannabis use, unspecified, uncomplicated; F17.210 Nicotine dependence, cigarettes, uncomplicated; Z88.1 Allergy status to other antibiotic agents; Z79.899 Other long term (current) drug therapy; Z20.822 Contact with and (suspected) exposure to COVID-19
CPT/HCPCS: 99283; 87426; 87804; 96372; J1885

== ENCOUNTER 2021-09-17 13:17 | Inpatient (IN) | payer MEDICAID ==
[~2021-09-17] VITALS: Ht 170.2 cm; Wt 142.7 kg
[~2021-09-17 13:17] MED LIST changes: +AMLO5TAB66 PO; +BACTDSB PO; +OXYC1TAB6 PO
[2021-09-17] MEDS ORDERED: LevETIRAcetam 1,000 MG in DEXTROSE 5%-WATER 100 ML IV ONE (14:15)
[2021-09-17 14:51] LABS: GLUCOSE,POINT OF CARE 104 MG/DL (70-110)
[2021-09-17 15:27] LABS: BASOPHILS % (AUTO) 0.6 % (0.0-2.0); EOSINOPHILS % (AUTO) 3.8 % (1.0-6.0); HEMATOCRIT 38.8 % (36-46); HEMOGLOBIN 12.1 g/dL (12.0-16.0); LYMPHOCYTES # (AUTO) 2.5 K/uL (1.0-4.8); LYMPHOCYTES % (AUTO) 31.2 % (22.0-44.0); MEAN CORPUSCULAR HEMOGLOBIN 24.6 pg (26.0-34.0); MEAN CORPUSCULAR HGB CONC 31.2 G/dL (31.0-37.0); MEAN CORPUSCULAR VOLUME 79 fL (80-100); MONOCYTES # (AUTO) 0.4 K/uL (0.1-1.0); MONOCYTES % (AUTO) 4.5 % (2.0-9.0); NEUTROPHILS # (AUTO) 4.8 K/uL (1.8-7.7); NEUTROPHILS % (AUTO) 59.9 % (40.0-70.0); PLATELET COUNT (AUTO) 337 K/uL (150-450); RED BLOOD CELL COUNT(AUTO) 4.92 MIL/uL (4.00-5.20); RED CELL DISTRIBUTION WIDTH 18.8 % (11.5-14.5)
[2021-09-17 15:51] LABS: ANION GAP 9 mmol/L (8-16); CALCIUM, TOTAL 8.9 mg/dL (8.8-10.5); CARBON DIOXIDE 28 mmol/L (22-29); CHLORIDE 104 mmol/L (98-107); CREATININE 0.85 mg/dL (0.60-1.30); GLUCOSE,RANDOM 99 mg/dL (70-110); POTASSIUM 3.5 mmol/L (3.5-5.1); SODIUM SERUM 141 mmol/L (136-145); UREA NITROGEN, BLOOD 11 mg/dL (7-18)
[2021-09-17 15:54] LABS: GLOMERULAR FILTR. RATE CALC > 60 mL/min (>60)
[2021-09-17 15:57] LABS: ALANINE AMINOTRANSFERASE 15 U/L (12-78); ALBUMIN 3.1 g/dL (3.4-5.0); ALKALINE PHOSPHATASE 101 U/L (46-116); ASPARTATE AMINOTRANSFERASE 13 U/L (15-37); BILIRUBIN,TOTAL 0.2 mg/dL (0.1-1.0); TOTAL PROTEIN, SERUM 6.9 g/dL (6.4-8.2)
[2021-09-17] MEDS ORDERED: SODIUM CHLORIDE 0.9% 1,000 ML IV ONE ×2 (18:15→21:00)
[2021-09-17] MEDS ORDERED: ONDANSETRON HCL 4 MG/2 ML VIAL IVP ONE (20:45)
[2021-09-17] MEDS ORDERED: KETOROLAC TROMETHAMINE 30 MG/ML VIAL IVP ONE (20:45)
[2021-09-17] MEDS ORDERED: ACETAMINOPHEN 325 MG TABLET PO PRN (21:00)
[2021-09-17] MEDS ORDERED: POTASSIUM CHLORIDE 20 MEQ ER TABLET PO PRN (21:00)
[2021-09-17] MEDS ORDERED: POTASSIUM CHL 10 MEQ/WATER 50 ML IV PRN (21:00)
[2021-09-17] MEDS ORDERED: DEXTROSE 50%-WATER 25 GM/50 ML SYRINGE IVP PRN (21:00)
[2021-09-17] MEDS ORDERED: INSULIN LISPRO 100 UNITS/ML SQ PRN (21:00)
[2021-09-17] MEDS ORDERED: AmLODIPine BESYLATE 5 MG TABLET PO SCH (21:00)
[2021-09-17 21:12] LABS: GLUCOMETER DEV NAME(LOC) ERT.5; GLUCOSE,POINT OF CARE 89 MG/DL (70-110)
[2021-09-17] MEDS: DOCUSATE SODIUM 100 MG CAPSULE PO SCH (21:15)
[2021-09-17 21:54] LABS: COVID AG,FIA SOURCE NASAL SWAB
[2021-09-17 22:13] VITALS: BP 131/78
[2021-09-17] MEDS: LORazepam 2 MG/ML VIAL IVP PRN (22:16)
[2021-09-17 23:49] VITALS: BP 146/71
[2021-09-18] MEDS: HEPARIN SODIUM,PORCINE 5,000 UNITS/ML VIAL SQ SCH ×3 (00:32→18:49)
[2021-09-18 04:21] VITALS: BP 127/63
[2021-09-18] MEDS: LevETIRAcetam 500 MG TABLET PO SCH ×2 (05:52→20:12)
[2021-09-18] MEDS: OxyCODONE HCL/ACETAMINOPHEN 5-325 MG TABLET PO PRN (05:53)
[2021-09-18 07:11] LABS: GLUCOMETER DEV NAME(LOC) 5S.2B; GLUCOSE,POINT OF CARE 97 MG/DL (70-110)
[2021-09-18 07:48] VITALS: BP 120/66
[2021-09-18] MEDS: DOCUSATE SODIUM 100 MG CAPSULE PO SCH ×2 (10:19→20:12)
[2021-09-18] MEDS: FAMOTIDINE 20 MG TABLET PO SCH (10:19)
[2021-09-18 11:15] VITALS: BP 124/86
[2021-09-18 13:16] LABS: GLUCOMETER DEV NAME(LOC) 5S.2B; GLUCOSE,POINT OF CARE 125 MG/DL (70-110)
[2021-09-18 15:11] VITALS: BP 128/73
[2021-09-18] MEDS: ONDANSETRON HCL 4 MG/2 ML VIAL IVP PRN (18:16)
[2021-09-18] MEDS ORDERED: LevETIRAcetam 1,500 MG in DEXTROSE 5%-WATER 100 ML IV ONE (20:00)
[2021-09-18] MEDS: AmLODIPine BESYLATE 2.5 MG TABLET PO SCH (20:12)
[2021-09-18 20:41] VITALS: BP 175/94
[2021-09-18 22:00] VITALS: BP 134/90
[2021-09-18] MEDS ORDERED: TOPIRAMATE 100 MG TABLET PO SCH (22:00)
[2021-09-19] VITALS: BP 129/72
[2021-09-19] MEDS: HEPARIN SODIUM,PORCINE 5,000 UNITS/ML VIAL SQ SCH ×3 (00:31→15:25)
[2021-09-19 04:00] VITALS: BP 132/84
[2021-09-19 04:22] LABS: GLUCOMETER DEV NAME(LOC) 5N.1C; GLUCOSE,POINT OF CARE 113 MG/DL (70-110)
[2021-09-19 04:22] LABS: GLUCOMETER DEV NAME(LOC) 5N.1C; GLUCOSE,POINT OF CARE 181 MG/DL (70-110)
[2021-09-19 04:22] LABS: GLUCOMETER DEV NAME(LOC) 5N.1C; GLUCOSE,POINT OF CARE 114 MG/DL (70-110)
[2021-09-19] MEDS: LORazepam 2 MG/ML VIAL IVP PRN (04:39)
[2021-09-19] MEDS ORDERED: LevETIRAcetam 1,000 MG in DEXTROSE 5%-WATER 100 ML IV SCH (06:00)
[2021-09-19] MEDS: WATER IV SCH ×2 (06:15→17:36)
[2021-09-19] MEDS: DEXTROSE 5% IV SCH ×2 (06:15→17:36)
[2021-09-19] MEDS: LEVETIRACETAM IV SCH ×2 (06:15→17:36)
[2021-09-19] MEDS ORDERED: SODIUM CHLORIDE 0.9% 250 ML IV ONE (06:15)
[2021-09-19] MEDS: OxyCODONE HCL/ACETAMINOPHEN 5-325 MG TABLET PO PRN (07:15)
[2021-09-19] MEDS: ONDANSETRON HCL 4 MG/2 ML VIAL IVP PRN (07:15)
[2021-09-19 08:00] VITALS: BP 159/89
[2021-09-19] MEDS: TOPIRAMATE 100 MG TABLET PO SCH ×2 (08:18→21:00)
[2021-09-19] MEDS: FAMOTIDINE 20 MG TABLET PO SCH (08:18)
[2021-09-19] MEDS: DOCUSATE SODIUM 100 MG CAPSULE PO SCH ×2 (08:18→21:00)
[2021-09-19 10:21] LABS: GLUCOSE,POINT OF CARE 108 MG/DL (70-110)
[2021-09-19 12:00] VITALS: BP 157/99
[2021-09-19 12:07] LABS: GLUCOSE,POINT OF CARE 112 MG/DL (70-110)
[2021-09-19 16:00] VITALS: BP 144/57
[2021-09-19 17:17] LABS: GLUCOSE,POINT OF CARE 112 MG/DL (70-110)
[2021-09-19 20:00] VITALS: BP 157/111
[2021-09-19] MEDS ORDERED: LORazepam 2 MG/ML VIAL IVP ONE (20:45)
[2021-09-19 21:02] LABS: BASOPHILS % (AUTO) 0.7 % (0.0-2.0); EOSINOPHILS % (AUTO) 3.7 % (1.0-6.0); HEMATOCRIT 34.8 % (36-46); LYMPHOCYTES % (AUTO) 26.9 % (22.0-44.0); MEAN CORPUSCULAR HEMOGLOBIN 24.6 pg (26.0-34.0); MEAN CORPUSCULAR HGB CONC 31.7 G/dL (31.0-37.0); MEAN CORPUSCULAR VOLUME 78 fL (80-100); MONOCYTES # (AUTO) 0.3 K/uL (0.1-1.0); NEUTROPHILS # (AUTO) 4.9 K/uL (1.8-7.7); NEUTROPHILS % (AUTO) 64.7 % (40.0-70.0); PLATELET COUNT (AUTO) 342 K/uL (150-450); RED BLOOD CELL COUNT(AUTO) 4.49 MIL/uL (4.00-5.20); RED CELL DISTRIBUTION WIDTH 18.9 % (11.5-14.5)
[2021-09-19 21:18] LABS: ALANINE AMINOTRANSFERASE 12 U/L (12-78); ALBUMIN 2.9 g/dL (3.4-5.0); ALKALINE PHOSPHATASE 95 U/L (46-116); ANION GAP 7 mmol/L (8-16); ASPARTATE AMINOTRANSFERASE 14 U/L (15-37); BILIRUBIN,TOTAL 0.1 mg/dL (0.1-1.0); CALCIUM, TOTAL 8.8 mg/dL (8.8-10.5); CARBON DIOXIDE 27 mmol/L (22-29); CHLORIDE 102 mmol/L (98-107); CREATININE 0.85 mg/dL (0.60-1.30); GLOMERULAR FILTR. RATE CALC > 60 mL/min (>60); GLUCOSE,RANDOM 114 mg/dL (70-110); POTASSIUM 4.1 mmol/L (3.5-5.1); SODIUM SERUM 136 mmol/L (136-145); TOTAL PROTEIN, SERUM 6.5 g/dL (6.4-8.2); UREA NITROGEN, BLOOD 12 mg/dL (7-18)
[2021-09-19] MEDS: AmLODIPine BESYLATE 2.5 MG TABLET PO SCH (21:33)
[2021-09-19 23:01] LABS: GLUCOSE,POINT OF CARE 111 MG/DL (70-110)
[2021-09-20] VITALS: BP 158/78
[2021-09-20] MEDS: HEPARIN SODIUM,PORCINE 5,000 UNITS/ML VIAL SQ SCH ×4 (00:28→23:50)
[2021-09-20] MEDS ORDERED: SODIUM CHLORIDE 0.9% 250 ML IV ONE (06:31)
[2021-09-20] MEDS: LEVETIRACETAM IV SCH (06:39)
[2021-09-20] MEDS: DEXTROSE 5% IV SCH (06:39)
[2021-09-20] MEDS: WATER IV SCH (06:39)
[2021-09-20] MEDS: ONDANSETRON HCL 4 MG/2 ML VIAL IVP PRN (07:12)
[2021-09-20] MEDS: OxyCODONE HCL/ACETAMINOPHEN 5-325 MG TABLET PO PRN (07:12)
[2021-09-20 08:00] VITALS: BP 154/94
[2021-09-20] MEDS: TOPIRAMATE 100 MG TABLET PO SCH ×2 (08:18→21:18)
[2021-09-20] MEDS: DOCUSATE SODIUM 100 MG CAPSULE PO SCH ×2 (08:18→20:33)
[2021-09-20] MEDS: FAMOTIDINE 20 MG TABLET PO SCH (08:19)
[2021-09-20 08:21] LABS: GLUCOSE,POINT OF CARE 92 MG/DL (70-110)
[2021-09-20] MEDS: AmLODIPine BESYLATE 5 MG TABLET PO SCH (09:29)
[2021-09-20] MEDS: HYDROXYCHLOROQUINE SULFATE 200 MG TABLET PO SCH ×2 (09:29→21:18)
[2021-09-20 11:46] LABS: GLUCOSE,POINT OF CARE 91 MG/DL (70-110)
[2021-09-20 12:00] VITALS: BP 145/95
[2021-09-20] MEDS ORDERED: LORazepam 2 MG/ML VIAL IVP ONE (12:00)
[2021-09-20 16:04] VITALS: BP 141/99
[2021-09-20] MEDS: MetFORMIN HCL 500 MG TABLET PO SCH (18:00)
[2021-09-20] MEDS ORDERED: LORazepam 2 MG/ML VIAL IM ONE (18:00)
[2021-09-20] MEDS ORDERED: LORazepam 2 MG/ML VIAL IM PRN (18:15)
[2021-09-20] MEDS: LORazepam 2 MG/ML VIAL IVP PRN (18:33)
[2021-09-20 19:47] VITALS: BP 147/93
[2021-09-20] MEDS: AmLODIPine BESYLATE 2.5 MG TABLET PO SCH (20:33)
[2021-09-20] MEDS: LevETIRAcetam 500 MG TABLET PO SCH (20:34)
[2021-09-20 20:50] VITALS: BP 154/78
[2021-09-21] VITALS: BP 150/91
[2021-09-21] MEDS: LORazepam 2 MG/ML VIAL IVP PRN (02:48)
[2021-09-21 04:00] VITALS: BP 170/85
[2021-09-21 08:00] VITALS: BP 156/80
[2021-09-21] MEDS: MetFORMIN HCL 500 MG TABLET PO SCH (08:00)
[2021-09-21] MEDS: FAMOTIDINE 20 MG TABLET PO SCH (08:12)
[2021-09-21] MEDS: HYDROXYCHLOROQUINE SULFATE 200 MG TABLET PO SCH (08:12)
[2021-09-21] MEDS: DOCUSATE SODIUM 100 MG CAPSULE PO SCH (08:12)
[2021-09-21] MEDS: TOPIRAMATE 100 MG TABLET PO SCH (08:12)
[2021-09-21] MEDS: HEPARIN SODIUM,PORCINE 5,000 UNITS/ML VIAL SQ SCH (08:12)
[2021-09-21] MEDS: LevETIRAcetam 500 MG TABLET PO SCH (08:12)
[2021-09-21] MEDS: AmLODIPine BESYLATE 5 MG TABLET PO SCH (08:12)
[2021-09-21 12:07] LABS: GLUCOSE,POINT OF CARE 108 MG/DL (70-110)
[2021-09-22 07:11] LABS: GLUCOMETER DEV NAME(LOC) 5S.1B; GLUCOSE,POINT OF CARE 64 MG/DL (70-110)
[2021-09-22 07:11] LABS: GLUCOMETER DEV NAME(LOC) 5S.1B; GLUCOSE,POINT OF CARE 105 MG/DL (70-110)
[2021-09-22 07:11] LABS: GLUCOMETER DEV NAME(LOC) 5S.1B; GLUCOSE,POINT OF CARE 100 MG/DL (70-110)
== END 2021-09-21 10:00 | disposition left against medical advice (07) | DRG 53 ==
LOC: EMS 13:17 → 5S 21:09 → EDBD 21:09 → MERGE 21:09 → ICU 09-18 21:35 → 5N 09-20 15:30 → ICU 09-20 20:50
PROVIDERS: ADMIT Internal Medicine; ATTEND Internal Medicine
DX: G40.801 Other epilepsy, not intractable, with status epilepticus (principal); M32.9 Systemic lupus erythematosus, unspecified; E66.2 Morbid (severe) obesity with alveolar hypoventilation; F29 Unspecified psychosis not due to a substance or known physiological condition; Z68.43 Body mass index [BMI] 50.0-59.9, adult; E11.9 Type 2 diabetes mellitus without complications; F41.9 Anxiety disorder, unspecified; Z20.822 Contact with and (suspected) exposure to COVID-19; Z53.29 Procedure and treatment not carried out because of patient's decision for other reasons; Z59.00 Homelessness unspecified
CPT/HCPCS: 70450; 80053; 82962; 84703; 85025; 87081; 87086; 99285; G0378; J0712; J1644; J1885; J2060; J2405; J7030; J7050; J7060

== ENCOUNTER 2021-10-22 13:57 | Emergency (ER) | payer MEDICAID ==
[~2021-10-22] VITALS: Ht 172.7 cm; Wt 104.5 kg
[2021-10-22] MEDS ORDERED: ONDANSETRON HCL 4 MG/2 ML VIAL IVP ONE (14:45)
[2021-10-22] MEDS ORDERED: LORazepam 2 MG/ML VIAL IVP ONE (14:45)
[2021-10-22] MEDS ORDERED: SODIUM CHLORIDE 0.9% 1,000 ML IV ONE (14:45)
[2021-10-22 15:01] LABS: GLUCOSE,POINT OF CARE 99 MG/DL (70-110)
[2021-10-22 15:05] LABS: BASOPHILS % (AUTO) 1.2 % (0.0-2.0); EOSINOPHILS % (AUTO) 3.8 % (1.0-6.0); HEMATOCRIT 36.6 % (36-46); HEMOGLOBIN 11.3 g/dL (12.0-16.0); LYMPHOCYTES # (AUTO) 2.9 K/uL (1.0-4.8); LYMPHOCYTES % (AUTO) 29.7 % (22.0-44.0); MEAN CORPUSCULAR HGB CONC 30.8 G/dL (31.0-37.0); MEAN CORPUSCULAR VOLUME 81 fL (80-100); MONOCYTES # (AUTO) 0.4 K/uL (0.1-1.0); MONOCYTES % (AUTO) 4.5 % (2.0-9.0); NEUTROPHILS # (AUTO) 5.8 K/uL (1.8-7.7); NEUTROPHILS % (AUTO) 60.8 % (40.0-70.0); PLATELET COUNT (AUTO) 338 K/uL (150-450); RED BLOOD CELL COUNT(AUTO) 4.52 MIL/uL (4.00-5.20); RED CELL DISTRIBUTION WIDTH 18.3 % (11.5-14.5)
[2021-10-22 15:20] LABS: ANION GAP 8 mmol/L (8-16); CALCIUM, TOTAL 9.5 mg/dL (8.8-10.5); CARBON DIOXIDE 28 mmol/L (22-29); CHLORIDE 105 mmol/L (98-107); CREATININE 0.98 mg/dL (0.60-1.30); GLUCOSE,RANDOM 97 mg/dL (70-110); POTASSIUM 3.5 mmol/L (3.5-5.1); SODIUM SERUM 141 mmol/L (136-145); UREA NITROGEN, BLOOD 14 mg/dL (7-18)
[2021-10-22 15:23] LABS: ALANINE AMINOTRANSFERASE 17 U/L (12-78); ALBUMIN 3.4 g/dL (3.4-5.0); ALKALINE PHOSPHATASE 125 U/L (46-116); ASPARTATE AMINOTRANSFERASE 13 U/L (15-37); BILIRUBIN,TOTAL 0.2 mg/dL (0.1-1.0); TOTAL PROTEIN, SERUM 7.4 g/dL (6.4-8.2)
[2021-10-22 15:24] LABS: GLOMERULAR FILTR. RATE CALC > 60 mL/min (>60)
[2021-10-22 15:47] LABS: HCG,QUANTITATIVE < 1 mIU/mL (0-6)
[2021-10-22] MEDS ORDERED: LEVE500T20 PO ×3 (20:06→20:10)
[2021-10-22] MEDS ORDERED: TOPI100T37 PO (20:10)
[2021-10-22] MEDS ORDERED: ASPI-1450 PO (20:10)
[2021-10-22] MEDS ORDERED: FURO40 PO (20:10)
[2021-10-22] MEDS ORDERED: AMLO5TAB66 PO (20:10)
[2021-10-22] MEDS ORDERED: HYDR-3831 PO (20:10)
[2021-10-22] MEDS ORDERED: ONDANSETRON HCL 4 MG TABLET PO ONE (21:00)
[2021-10-23 05:56] LABS: COVID AG,FIA SOURCE NASAL SWAB
[2021-10-23 06:15] VITALS: BP 149/58
== END 2021-10-22 19:58 | disposition home or self-care (01) ==
LOC: EMS 14:02
DX: G40.509 Epileptic seizures related to external causes, not intractable, without status epilepticus (principal); Z20.822 Contact with and (suspected) exposure to COVID-19; F41.9 Anxiety disorder, unspecified; R11.2 Nausea with vomiting, unspecified; E11.9 Type 2 diabetes mellitus without complications; R42 Dizziness and giddiness
CPT/HCPCS: 80053; 82962; 84702; 85025; 36415; 99284; 96374; 96375; 87426; J2060; J2405; Q0162; J7030; 82948

== ENCOUNTER 2021-11-10 20:56 | Emergency (ER) | payer MEDICAID ==
[~2021-11-10] VITALS: Ht 172.7 cm; Wt 121.8 kg
[~2021-11-10 20:56] MED LIST changes: -BACTDSB PO; -LEVE250T4 PO; +LEVE500T20 PO; -METF-444 PO; -NYST15PO4 TP; -OXYC1TAB6 PO
[2021-11-10 20:59] VITALS: BP 142/84
== END 2021-11-10 23:16 | disposition left against medical advice (07) ==
LOC: EMS 21:26
DX: Z53.21 Procedure and treatment not carried out due to patient leaving prior to being seen by health care provider (principal)

== ENCOUNTER 2021-11-11 15:09 | Emergency (ER) | payer MEDICAID ==
[~2021-11-11] VITALS: Ht 172.7 cm; Wt 121.4 kg
[2021-11-11] MEDS ORDERED: SODIUM CHLORIDE 0.9% 1,000 ML IV ONE (15:45)
[2021-11-11] MEDS ORDERED: ACETAMINOPHEN 1000 MG/ISO-OSM 100 ML IV ONE (15:45)
[2021-11-11 15:49] LABS: BASOPHILS % (AUTO) 0.8 % (0.0-2.0); EOSINOPHILS % (AUTO) 4.1 % (1.0-6.0); HEMATOCRIT 37.5 % (36-46); HEMOGLOBIN 11.6 g/dL (12.0-16.0); LYMPHOCYTES # (AUTO) 3.2 K/uL (1.0-4.8); LYMPHOCYTES % (AUTO) 35.6 % (22.0-44.0); MEAN CORPUSCULAR HGB CONC 30.9 G/dL (31.0-37.0); MEAN CORPUSCULAR VOLUME 81 fL (80-100); MONOCYTES # (AUTO) 0.5 K/uL (0.1-1.0); MONOCYTES % (AUTO) 5.1 % (2.0-9.0); NEUTROPHILS % (AUTO) 54.4 % (40.0-70.0); PLATELET COUNT (AUTO) 320 K/uL (150-450); RED BLOOD CELL COUNT(AUTO) 4.63 MIL/uL (4.00-5.20); RED CELL DISTRIBUTION WIDTH 18.8 % (11.5-14.5)
[2021-11-11 15:56] LABS: ANION GAP 7 mmol/L (8-16); CALCIUM, TOTAL 9.3 mg/dL (8.8-10.5); CARBON DIOXIDE 24 mmol/L (22-29); CHLORIDE 107 mmol/L (98-107); CREATININE 1.08 mg/dL (0.60-1.30); GLOMERULAR FILTR. RATE CALC > 60 mL/min (>60); GLUCOSE,RANDOM 103 mg/dL (70-110); POTASSIUM 3.7 mmol/L (3.5-5.1); SODIUM SERUM 138 mmol/L (136-145); UREA NITROGEN, BLOOD 17 mg/dL (7-18)
[2021-11-11 16:07] LABS: CREATINE KINASE, TOTAL ONLY 263 U/L (26-192)
[2021-11-11 16:45] LABS: COVID AG,FIA SOURCE NASOPHARYNGEAL
[2021-11-11 17:09] VITALS: BP 177/98
[2021-11-11 18:13] LABS: AMPHET/METH SCREEN,URINE POSITIVE (NEGATIVE); BARBITURATE SCREEN, URINE NEGATIVE (NEGATIVE); BENZODIAZEPINES SCREEN,URINE NEGATIVE (NEGATIVE); CANNABINOID SCREEN,URINE POSITIVE (NEGATIVE); COCAINE SCREEN,URINE NEGATIVE (NEGATIVE); METHADONE SCREEN, URINE NEGATIVE (NEGATIVE); OPIATE SCREEN,URINE NEGATIVE (NEGATIVE); PHENCYCLIDINE SCREEN,URINE POSITIVE (NEGATIVE)
== END 2021-11-11 20:50 | disposition home or self-care (01) ==
LOC: EMS 15:09
DX: F15.10 Other stimulant abuse, uncomplicated (principal); Z20.822 Contact with and (suspected) exposure to COVID-19; E11.9 Type 2 diabetes mellitus without complications; F16.10 Hallucinogen abuse, uncomplicated; F10.20 Alcohol dependence, uncomplicated; I10 Essential (primary) hypertension; G40.909 Epilepsy, unspecified, not intractable, without status epilepticus; Z90.49 Acquired absence of other specified parts of digestive tract
CPT/HCPCS: 99284; 96365; 87426; 80048; 82550; 85025; 36415; 82948; 80307; J7030; J0131; 99283

== ENCOUNTER 2021-12-26 01:35 | Emergency (ER) | payer MEDICAID ==
[~2021-12-26] VITALS: Ht 167.6 cm; Wt 143.2 kg
[2021-12-26 02:37] LABS: BASOPHILS % (AUTO) 0.7 % (0.0-2.0); EOSINOPHILS % (AUTO) 3.4 % (1.0-6.0); HEMATOCRIT 37.7 % (36-46); HEMOGLOBIN 11.8 g/dL (12.0-16.0); LYMPHOCYTES # (AUTO) 3.1 K/uL (1.0-4.8); LYMPHOCYTES % (AUTO) 29.7 % (22.0-44.0); MEAN CORPUSCULAR HEMOGLOBIN 24.9 pg (26.0-34.0); MEAN CORPUSCULAR HGB CONC 31.3 G/dL (31.0-37.0); MEAN CORPUSCULAR VOLUME 80 fL (80-100); MONOCYTES # (AUTO) 0.5 K/uL (0.1-1.0); MONOCYTES % (AUTO) 4.9 % (2.0-9.0); NEUTROPHILS # (AUTO) 6.4 K/uL (1.8-7.7); NEUTROPHILS % (AUTO) 61.3 % (40.0-70.0); PLATELET COUNT (AUTO) 376 K/uL (150-450); RED BLOOD CELL COUNT(AUTO) 4.75 MIL/uL (4.00-5.20); RED CELL DISTRIBUTION WIDTH 16.4 % (11.5-14.5)
[2021-12-26 02:53] LABS: COVID AG,FIA SOURCE NASOPHARYNGEAL
[2021-12-26 02:56] LABS: ALANINE AMINOTRANSFERASE 19 U/L (12-78); ALBUMIN 3.2 g/dL (3.4-5.0); ALKALINE PHOSPHATASE 129 U/L (46-116); ANION GAP 6 mmol/L (8-16); ASPARTATE AMINOTRANSFERASE 14 U/L (15-37); BILIRUBIN,TOTAL 0.2 mg/dL (0.1-1.0); CALCIUM, TOTAL 9.7 mg/dL (8.8-10.5); CARBON DIOXIDE 29 mmol/L (22-29); CHLORIDE 101 mmol/L (98-107); CREATININE 0.91 mg/dL (0.60-1.30); GLUCOSE,RANDOM 118 mg/dL (70-110); HCG,QUANTITATIVE < 1 mIU/mL (0-6); POTASSIUM 3.9 mmol/L (3.5-5.1); SODIUM SERUM 136 mmol/L (136-145); TOTAL PROTEIN, SERUM 7.5 g/dL (6.4-8.2); UREA NITROGEN, BLOOD 23 mg/dL (7-18)
[2021-12-26 02:57] LABS: GLOMERULAR FILTR. RATE CALC > 60 mL/min (>60)
[2021-12-26 03:19] LABS: INFLUENZA TYPE A NEGATIVE FOR TYPE A (NEGATIVE); INFLUENZA TYPE B NEGATIVE FOR TYPE B (NEGATIVE)
[2021-12-26 05:01] LABS: APPEARANCE,URINE CLEAR (CLEAR); BILIRUBIN,URINE NEGATIVE (NEGATIVE); GLUCOSE, URINE (UA) NEGATIVE (NEGATIVE); KETONES,URINE NEGATIVE (NEGATIVE); LEUKOCYTE ESTERASE ,URINE NEGATIVE (NEGATIVE); NITRATE,URINE NEGATIVE (NEGATIVE); OCCULT BLOOD,URINE NEGATIVE (NEGATIVE); PH,URINE 6.5 (5.0-8.0); PROTEIN,URINE NEGATIVE (NEGATIVE); SPECIFIC GRAVITIY, URINE 1.014 (1.003-1.030); UROBILINOGEN,URINE <=1.0 mg/dL (<=1.0)
[2021-12-26 05:07] LABS: AMPHET/METH SCREEN,URINE POSITIVE (NEGATIVE); BARBITURATE SCREEN, URINE NEGATIVE (NEGATIVE); BENZODIAZEPINES SCREEN,URINE NEGATIVE (NEGATIVE); CANNABINOID SCREEN,URINE NEGATIVE (NEGATIVE); COCAINE SCREEN,URINE NEGATIVE (NEGATIVE); METHADONE SCREEN, URINE NEGATIVE (NEGATIVE); OPIATE SCREEN,URINE NEGATIVE (NEGATIVE); PHENCYCLIDINE SCREEN,URINE POSITIVE (NEGATIVE)
[2021-12-26 06:34] VITALS: BP 148/76
[2021-12-26] MEDS ORDERED: LISI20TA24 PO (15:47)
[2021-12-26] MEDS ORDERED: DOCU100C33 PO (15:47)
[2021-12-26] MEDS ORDERED: FURO20TA4 PO (15:47)
[2021-12-26] MEDS ORDERED: ESCI10 PO (15:47)
[2021-12-26] MEDS ORDERED: NAPR-1025 PO (15:47)
== END 2021-12-26 07:06 | disposition home or self-care (01) ==
LOC: EMS 01:36
DX: F41.9 Anxiety disorder, unspecified (principal); Z20.822 Contact with and (suspected) exposure to COVID-19; E11.9 Type 2 diabetes mellitus without complications; F10.20 Alcohol dependence, uncomplicated; F15.10 Other stimulant abuse, uncomplicated; F16.10 Hallucinogen abuse, uncomplicated; I10 Essential (primary) hypertension; R50.9 Fever, unspecified; R06.02 Shortness of breath; R11.2 Nausea with vomiting, unspecified; Z90.49 Acquired absence of other specified parts of digestive tract; Z88.5 Allergy status to narcotic agent
CPT/HCPCS: 99285; 71045; 87426; 80053; 81003; 83880; 84484; 84702; 85025; 87804; 36415; 93005; 80307; G0480

== ENCOUNTER 2021-12-26 09:01 | Inpatient (IN) | payer MEDICAID ==
[~2021-12-26] VITALS: Ht 172.7 cm; Wt 135.7 kg
[2021-12-26 09:52] LABS: BASOPHILS % (AUTO) 0.8 % (0.0-2.0); EOSINOPHILS % (AUTO) 2.8 % (1.0-6.0); HEMATOCRIT 39.8 % (36-46); HEMOGLOBIN 12.4 g/dL (12.0-16.0); LYMPHOCYTES # (AUTO) 2.9 K/uL (1.0-4.8); MEAN CORPUSCULAR HEMOGLOBIN 24.9 pg (26.0-34.0); MEAN CORPUSCULAR HGB CONC 31.2 G/dL (31.0-37.0); MEAN CORPUSCULAR VOLUME 80 fL (80-100); MONOCYTES # (AUTO) 0.6 K/uL (0.1-1.0); MONOCYTES % (AUTO) 5.3 % (2.0-9.0); NEUTROPHILS # (AUTO) 7.3 K/uL (1.8-7.7); NEUTROPHILS % (AUTO) 65.1 % (40.0-70.0); PLATELET COUNT (AUTO) 393 K/uL (150-450); RED BLOOD CELL COUNT(AUTO) 4.99 MIL/uL (4.00-5.20); RED CELL DISTRIBUTION WIDTH 16.1 % (11.5-14.5)
[2021-12-26 09:57] LABS: COVID AG,FIA SOURCE NASOPHARYNGEAL
[2021-12-26 10:02] LABS: ANION GAP 7 mmol/L (8-16); CALCIUM, TOTAL 9.8 mg/dL (8.8-10.5); CARBON DIOXIDE 26 mmol/L (22-29); CHLORIDE 101 mmol/L (98-107); CREATININE 0.75 mg/dL (0.60-1.30); GLUCOSE,RANDOM 98 mg/dL (70-110); POTASSIUM 3.9 mmol/L (3.5-5.1); SODIUM SERUM 134 mmol/L (136-145); UREA NITROGEN, BLOOD 19 mg/dL (7-18)
[2021-12-26 10:05] LABS: GLOMERULAR FILTR. RATE CALC > 60 mL/min (>60)
[2021-12-26 10:14] LABS: ALANINE AMINOTRANSFERASE 18 U/L (12-78); ALBUMIN 3.3 g/dL (3.4-5.0); ALKALINE PHOSPHATASE 133 U/L (46-116); ASPARTATE AMINOTRANSFERASE 15 U/L (15-37); BILIRUBIN,TOTAL 0.3 mg/dL (0.1-1.0); HCG,QUANTITATIVE < 1 mIU/mL (0-6); TOTAL PROTEIN, SERUM 7.9 g/dL (6.4-8.2)
[2021-12-26 11:48] LABS: AMPHET/METH SCREEN,URINE POSITIVE (NEGATIVE); BARBITURATE SCREEN, URINE NEGATIVE (NEGATIVE); BENZODIAZEPINES SCREEN,URINE NEGATIVE (NEGATIVE); CANNABINOID SCREEN,URINE NEGATIVE (NEGATIVE); COCAINE SCREEN,URINE NEGATIVE (NEGATIVE); METHADONE SCREEN, URINE NEGATIVE (NEGATIVE); OPIATE SCREEN,URINE NEGATIVE (NEGATIVE)
[2021-12-26 11:51] LABS: PHENCYCLIDINE SCREEN,URINE POSITIVE (NEGATIVE)
[2021-12-26] MEDS ORDERED: LISI20TA24 PO (15:47)
[2021-12-26] MEDS ORDERED: FURO20TA4 PO (15:47)
[2021-12-26] MEDS ORDERED: DOCU100C33 PO (15:47)
[2021-12-26] MEDS ORDERED: ESCI10 PO (15:47)
[2021-12-26] MEDS ORDERED: NAPR-1025 PO (15:47)
[2021-12-26 16:54] VITALS: BP 170/100
[2021-12-26] MEDS: LORazepam 2 MG TABLET PO PRN (17:20)
[2021-12-26] MEDS: HALOPERIDOL 5 MG TABLET PO PRN (18:14)
[2021-12-26 18:20] VITALS: BP 161/104
[2021-12-26] MEDS ORDERED: DEXTROSE 50%-WATER 25 GM/50 ML SYRINGE IVP PRN (19:45)
[2021-12-26] MEDS ORDERED: DOCUSATE SODIUM 100 MG CAPSULE PO PRN (20:30)
[2021-12-26] MEDS ORDERED: ACETAMINOPHEN 325 MG TABLET PO PRN (20:30)
[2021-12-26] MEDS ORDERED: OMEPRAZOLE 20 MG CAPSULE PO PRN (20:30)
[2021-12-26] MEDS ORDERED: MAGNESIUM HYDROXIDE SUSPENSION 30 ML UDCUP PO PRN (20:30)
[2021-12-26] MEDS ORDERED: LOPERAMIDE HCL 2 MG CAPSULE PO PRN (20:30)
[2021-12-26] MEDS ORDERED: BACITRACIN 28 GM OINTMENT TP PRN (20:30)
[2021-12-26] MEDS ORDERED: CloNIDine HCL 0.1 MG TABLET PO PRN (20:30)
[2021-12-26] MEDS ORDERED: ONDANSETRON HCL 4 MG TABLET PO PRN (20:30)
[2021-12-26] MEDS ORDERED: MAG HYDROX/AL HYDROX/SIMETH ES 30 ML SUSPENSION UDCUP PO PRN (20:30)
[2021-12-26] MEDS ORDERED: BENZOCAINE/MENTHOL LOZENGE PO PRN (20:30)
[2021-12-26] MEDS ORDERED: ALBUTEROL SULFATE HFA 90 MCG/PUFF 8 GM INHALER IH PRN (20:30)
[2021-12-26] MEDS ORDERED: PETROLATUM,WHITE 28 GM JELLY TP PRN (20:30)
[2021-12-26] MEDS: ZOLPIDEM TARTRATE 10 MG TABLET PO PRN (20:31)
[2021-12-26] MEDS: INSULIN LISPRO 100 UNITS/ML SQ PRN (21:10)
[2021-12-26 22:30] VITALS: BP 141/82
[2021-12-26 22:31] LABS: GLUCOMETER DEV NAME(LOC) 3E.C; GLUCOSE,POINT OF CARE 148 MG/DL (70-110)
[2021-12-27 06:07] LABS: GLUCOMETER DEV NAME(LOC) 3E.C; GLUCOSE,POINT OF CARE 119 MG/DL (70-110)
[2021-12-27 08:34] VITALS: BP 143/91
[2021-12-27] MEDS: AmLODIPine BESYLATE 5 MG TABLET PO SCH (08:41)
[2021-12-27] MEDS: LORazepam 2 MG TABLET PO PRN ×2 (11:15→20:33)
[2021-12-27 11:26] LABS: GLUCOMETER DEV NAME(LOC) 3E.C; GLUCOSE,POINT OF CARE 114 MG/DL (70-110)
[2021-12-27 14:49] VITALS: BP 156/86
[2021-12-27 16:35] VITALS: BP 157/86
[2021-12-27 17:16] LABS: GLUCOMETER DEV NAME(LOC) 3E.C; GLUCOSE,POINT OF CARE 129 MG/DL (70-110)
[2021-12-27] MEDS: LevETIRAcetam 500 MG TABLET PO SCH (20:32)
[2021-12-27] MEDS: LISINOPRIL 20 MG TABLET PO SCH (20:32)
[2021-12-27] MEDS: TOPIRAMATE 100 MG TABLET PO SCH (20:32)
[2021-12-27] MEDS: HALOPERIDOL 5 MG TABLET PO PRN (20:33)
[2021-12-27 20:36] LABS: GLUCOMETER DEV NAME(LOC) 3E.C; GLUCOSE,POINT OF CARE 113 MG/DL (70-110)
[2021-12-27] MEDS: ZOLPIDEM TARTRATE 10 MG TABLET PO PRN (21:42)
[2021-12-28] MEDS: LORazepam 2 MG TABLET PO PRN ×2 (05:15→11:08)
[2021-12-28 05:36] LABS: GLUCOMETER DEV NAME(LOC) 3E.C; GLUCOSE,POINT OF CARE 148 MG/DL (70-110)
[2021-12-28 06:30] VITALS: BP 163/107
[2021-12-28] MEDS: LevETIRAcetam 500 MG TABLET PO SCH ×2 (08:27→16:21)
[2021-12-28] MEDS: LISINOPRIL 20 MG TABLET PO SCH (08:28)
[2021-12-28] MEDS: AmLODIPine BESYLATE 5 MG TABLET PO SCH (08:28)
[2021-12-28] MEDS: TOPIRAMATE 100 MG TABLET PO SCH ×2 (08:28→16:21)
[2021-12-28] MEDS: FUROSEMIDE 20 MG TABLET PO SCH (08:28)
[2021-12-28] MEDS: ASPIRIN 81 MG CHEWABLE TABLET PO SCH (08:28)
[2021-12-28] MEDS: ESCITALOPRAM OXALATE 10 MG TABLET PO SCH (08:28)
[2021-12-28 08:50] VITALS: BP_SYST 161; BP_SYST 171; BP_DIAS 102; BP_DIAS 92
[2021-12-28 09:59] VITALS: BP 150/100
[2021-12-28 12:29] VITALS: BP 133/84
[2021-12-28 12:31] LABS: GLUCOMETER DEV NAME(LOC) 3E.C; GLUCOSE,POINT OF CARE 121 MG/DL (70-110)
[2021-12-28 16:35] VITALS: BP 157/80
[2021-12-28 17:36] LABS: GLUCOMETER DEV NAME(LOC) 3E.C; GLUCOSE,POINT OF CARE 129 MG/DL (70-110)
[2021-12-28] MEDS: INSULIN LISPRO 100 UNITS/ML SQ PRN (20:14)
[2021-12-28 23:01] LABS: GLUCOMETER DEV NAME(LOC) 3E.C; GLUCOSE,POINT OF CARE 140 MG/DL (70-110)
[2021-12-29 06:11] LABS: GLUCOMETER DEV NAME(LOC) 3E.C; GLUCOSE,POINT OF CARE 113 MG/DL (70-110)
[2021-12-29] MEDS: INSULIN LISPRO 100 UNITS/ML SQ PRN ×3 (06:41→21:08)
[2021-12-29 07:01] LABS: HEMOGLOBIN A1C 6.2 % (3.8-5.6)
[2021-12-29 07:13] LABS: CHOL/HDL RATIO 4.6 (3.9-5.7); FREE T4 (FREE THYROXINE) 1.25 ng/dL (0.76-1.46); THYROID STIMULATING HORMONE 0.73 uIU/mL (0.36-3.74)
[2021-12-29] MEDS: ASPIRIN 81 MG CHEWABLE TABLET PO SCH (08:13)
[2021-12-29] MEDS: HALOPERIDOL 5 MG TABLET PO PRN (08:13)
[2021-12-29] MEDS: LevETIRAcetam 500 MG TABLET PO SCH ×2 (08:13→16:30)
[2021-12-29] MEDS: AmLODIPine BESYLATE 5 MG TABLET PO SCH (08:13)
[2021-12-29] MEDS: ESCITALOPRAM OXALATE 10 MG TABLET PO SCH (08:13)
[2021-12-29] MEDS: FUROSEMIDE 20 MG TABLET PO SCH (08:13)
[2021-12-29] MEDS: LORazepam 2 MG TABLET PO PRN (08:13)
[2021-12-29] MEDS: LISINOPRIL 20 MG TABLET PO SCH (08:13)
[2021-12-29] MEDS: TOPIRAMATE 100 MG TABLET PO SCH ×2 (08:13→16:30)
[2021-12-29 08:48] VITALS: BP 157/100
[2021-12-29 12:01] LABS: GLUCOMETER DEV NAME(LOC) 3E.C; GLUCOSE,POINT OF CARE 117 MG/DL (70-110)
[2021-12-29 16:19] VITALS: BP 131/76
[2021-12-29 16:50] LABS: GLUCOMETER DEV NAME(LOC) 3E.C; GLUCOSE,POINT OF CARE 144 MG/DL (70-110)
[2021-12-29 18:05] VITALS: BP 134/82
[2021-12-29] MEDS: IBUPROFEN 600 MG TABLET PO PRN (18:05)
[2021-12-29 21:11] LABS: GLUCOMETER DEV NAME(LOC) 3E.C; GLUCOSE,POINT OF CARE 106 MG/DL (70-110)
[2021-12-30 06:36] LABS: GLUCOMETER DEV NAME(LOC) 3E.C; GLUCOSE,POINT OF CARE 124 MG/DL (70-110)
[2021-12-30] MEDS: INSULIN LISPRO 100 UNITS/ML SQ PRN (06:39)
[2021-12-30 08:05] VITALS: BP 138/90
[2021-12-30] MEDS: AmLODIPine BESYLATE 5 MG TABLET PO SCH (08:30)
[2021-12-30] MEDS: ESCITALOPRAM OXALATE 10 MG TABLET PO SCH (08:30)
[2021-12-30] MEDS: LISINOPRIL 20 MG TABLET PO SCH (08:30)
[2021-12-30] MEDS: FUROSEMIDE 20 MG TABLET PO SCH (08:30)
[2021-12-30] MEDS: TOPIRAMATE 100 MG TABLET PO SCH ×2 (08:30→16:10)
[2021-12-30] MEDS: ASPIRIN 81 MG CHEWABLE TABLET PO SCH (08:30)
[2021-12-30] MEDS: LevETIRAcetam 500 MG TABLET PO SCH ×2 (08:30→16:10)
[2021-12-30 11:31] LABS: GLUCOMETER DEV NAME(LOC) 3E.C; GLUCOSE,POINT OF CARE 106 MG/DL (70-110)
[2021-12-30 16:30] LABS: GLUCOMETER DEV NAME(LOC) 3E.C; GLUCOSE,POINT OF CARE 131 MG/DL (70-110)
[2021-12-30 16:36] VITALS: BP 161/80
[2021-12-30 20:31] LABS: GLUCOMETER DEV NAME(LOC) 3E.C; GLUCOSE,POINT OF CARE 120 MG/DL (70-110)
[2021-12-31 06:51] LABS: GLUCOMETER DEV NAME(LOC) 3E.C; GLUCOSE,POINT OF CARE 135 MG/DL (70-110)
[2021-12-31 08:28] VITALS: BP 156/86
[2021-12-31] MEDS: TOPIRAMATE 100 MG TABLET PO SCH ×2 (08:29→16:30)
[2021-12-31] MEDS: AmLODIPine BESYLATE 5 MG TABLET PO SCH (08:30)
[2021-12-31] MEDS: LevETIRAcetam 500 MG TABLET PO SCH ×2 (08:30→16:30)
[2021-12-31] MEDS: FUROSEMIDE 20 MG TABLET PO SCH (08:30)
[2021-12-31] MEDS: LISINOPRIL 20 MG TABLET PO SCH (08:30)
[2021-12-31] MEDS: ESCITALOPRAM OXALATE 10 MG TABLET PO SCH (08:30)
[2021-12-31] MEDS: ASPIRIN 81 MG CHEWABLE TABLET PO SCH (08:31)
[2021-12-31 12:06] LABS: GLUCOMETER DEV NAME(LOC) 3E.C; GLUCOSE,POINT OF CARE 105 MG/DL (70-110)
[2021-12-31 16:06] VITALS: BP 151/81
[2021-12-31 17:10] LABS: GLUCOMETER DEV NAME(LOC) 3E.C; GLUCOSE,POINT OF CARE 132 MG/DL (70-110)
[2021-12-31 20:51] LABS: GLUCOMETER DEV NAME(LOC) 3E.C; GLUCOSE,POINT OF CARE 125 MG/DL (70-110)
[2022-01-01 06:47] LABS: COVID AG,FIA SOURCE NASAL SWAB
[2022-01-01 06:51] LABS: GLUCOMETER DEV NAME(LOC) 3E.C; GLUCOSE,POINT OF CARE 134 MG/DL (70-110)
[2022-01-01 08:00] VITALS: BP 139/92
[2022-01-01] MEDS: ASPIRIN 81 MG CHEWABLE TABLET PO SCH (09:10)
[2022-01-01] MEDS: FUROSEMIDE 20 MG TABLET PO SCH (09:10)
[2022-01-01] MEDS: LevETIRAcetam 500 MG TABLET PO SCH ×2 (09:10→16:06)
[2022-01-01] MEDS: LISINOPRIL 20 MG TABLET PO SCH (09:10)
[2022-01-01] MEDS: ESCITALOPRAM OXALATE 10 MG TABLET PO SCH (09:10)
[2022-01-01] MEDS: TOPIRAMATE 100 MG TABLET PO SCH ×2 (09:10→16:06)
[2022-01-01] MEDS: AmLODIPine BESYLATE 5 MG TABLET PO SCH (09:10)
[2022-01-01 11:16] LABS: GLUCOMETER DEV NAME(LOC) 3E.C; GLUCOSE,POINT OF CARE 124 MG/DL (70-110)
[2022-01-01 16:00] VITALS: BP 152/98
[2022-01-01 16:26] LABS: GLUCOMETER DEV NAME(LOC) 3E.C; GLUCOSE,POINT OF CARE 135 MG/DL (70-110)
[2022-01-01] MEDS: LORazepam 2 MG TABLET PO PRN (18:50)
[2022-01-01 21:21] LABS: GLUCOMETER DEV NAME(LOC) 3E.C; GLUCOSE,POINT OF CARE 119 MG/DL (70-110)
[2022-01-01] MEDS: ZOLPIDEM TARTRATE 10 MG TABLET PO PRN (23:37)
[2022-01-02 06:21] LABS: GLUCOMETER DEV NAME(LOC) 3E.C; GLUCOSE,POINT OF CARE 115 MG/DL (70-110)
[2022-01-02] MEDS: FUROSEMIDE 20 MG TABLET PO SCH (09:11)
[2022-01-02] MEDS: LevETIRAcetam 500 MG TABLET PO SCH ×2 (09:11→17:08)
[2022-01-02] MEDS: LISINOPRIL 20 MG TABLET PO SCH (09:11)
[2022-01-02] MEDS: ESCITALOPRAM OXALATE 10 MG TABLET PO SCH (09:11)
[2022-01-02] MEDS: ASPIRIN 81 MG CHEWABLE TABLET PO SCH (09:11)
[2022-01-02] MEDS: AmLODIPine BESYLATE 5 MG TABLET PO SCH (09:11)
[2022-01-02] MEDS: TOPIRAMATE 100 MG TABLET PO SCH ×2 (09:11→17:08)
[2022-01-02 11:24] VITALS: BP 165/85
[2022-01-02 12:01] LABS: GLUCOMETER DEV NAME(LOC) 3E.C; GLUCOSE,POINT OF CARE 115 MG/DL (70-110)
[2022-01-02 16:41] LABS: GLUCOMETER DEV NAME(LOC) 3E.C; GLUCOSE,POINT OF CARE 120 MG/DL (70-110)
[2022-01-02 17:59] VITALS: BP 138/84
[2022-01-02] MEDS: IBUPROFEN 600 MG TABLET PO PRN (17:59)
[2022-01-02] MEDS: LORazepam 2 MG TABLET PO PRN (17:59)
[2022-01-02 18:59] VITALS: BP 134/78
[2022-01-02 20:41] LABS: GLUCOMETER DEV NAME(LOC) 3E.C; GLUCOSE,POINT OF CARE 121 MG/DL (70-110)
[2022-01-02] MEDS: ZOLPIDEM TARTRATE 10 MG TABLET PO PRN (20:58)
[2022-01-03] MEDS: HALOPERIDOL 5 MG TABLET PO PRN ×2 (01:51→15:44)
[2022-01-03] MEDS: INSULIN LISPRO 100 UNITS/ML SQ PRN ×2 (06:33→20:24)
[2022-01-03 06:46] LABS: GLUCOMETER DEV NAME(LOC) 3E.C; GLUCOSE,POINT OF CARE 111 MG/DL (70-110)
[2022-01-03] MEDS: ESCITALOPRAM OXALATE 10 MG TABLET PO SCH (08:26)
[2022-01-03] MEDS: ASPIRIN 81 MG CHEWABLE TABLET PO SCH (08:26)
[2022-01-03] MEDS: LevETIRAcetam 500 MG TABLET PO SCH ×2 (08:26→16:42)
[2022-01-03] MEDS: FUROSEMIDE 20 MG TABLET PO SCH (08:26)
[2022-01-03] MEDS: LISINOPRIL 20 MG TABLET PO SCH (08:26)
[2022-01-03] MEDS: TOPIRAMATE 100 MG TABLET PO SCH ×2 (08:26→16:42)
[2022-01-03] MEDS: AmLODIPine BESYLATE 5 MG TABLET PO SCH (08:26)
[2022-01-03 09:13] VITALS: BP 115/91
[2022-01-03 11:36] LABS: GLUCOMETER DEV NAME(LOC) 3E.C; GLUCOSE,POINT OF CARE 110 MG/DL (70-110)
[2022-01-03] MEDS: LORazepam 2 MG TABLET PO PRN (15:44)
[2022-01-03 15:45] VITALS: BP 122/84
[2022-01-03] MEDS: IBUPROFEN 600 MG TABLET PO PRN (15:45)
[2022-01-03 16:21] LABS: GLUCOMETER DEV NAME(LOC) 3E.C; GLUCOSE,POINT OF CARE 130 MG/DL (70-110)
[2022-01-03 16:45] VITALS: BP 126/82
[2022-01-03] MEDS: ZOLPIDEM TARTRATE 10 MG TABLET PO PRN (20:16)
[2022-01-03 20:31] LABS: GLUCOMETER DEV NAME(LOC) 3E.C; GLUCOSE,POINT OF CARE 151 MG/DL (70-110)
[2022-01-04 06:46] LABS: GLUCOMETER DEV NAME(LOC) 3E.C; GLUCOSE,POINT OF CARE 101 MG/DL (70-110)
[2022-01-04 08:00] VITALS: BP 152/77
[2022-01-04] MEDS: ESCITALOPRAM OXALATE 10 MG TABLET PO SCH (09:00)
[2022-01-04] MEDS: FUROSEMIDE 20 MG TABLET PO SCH (09:00)
[2022-01-04] MEDS: ASPIRIN 81 MG CHEWABLE TABLET PO SCH (09:00)
[2022-01-04] MEDS: LISINOPRIL 20 MG TABLET PO SCH (09:00)
[2022-01-04] MEDS: TOPIRAMATE 100 MG TABLET PO SCH ×2 (09:00→16:21)
[2022-01-04] MEDS: AmLODIPine BESYLATE 5 MG TABLET PO SCH (09:00)
[2022-01-04] MEDS: LevETIRAcetam 500 MG TABLET PO SCH ×2 (09:00→16:22)
[2022-01-04 12:01] LABS: GLUCOMETER DEV NAME(LOC) 3E.C; GLUCOSE,POINT OF CARE 113 MG/DL (70-110)
[2022-01-04] MEDS: INSULIN LISPRO 100 UNITS/ML SQ PRN ×2 (12:41→17:52)
[2022-01-04 16:18] VITALS: BP 129/92
[2022-01-04] MEDS: LORazepam 2 MG TABLET PO PRN (16:21)
[2022-01-04] MEDS: IBUPROFEN 600 MG TABLET PO PRN (16:21)
[2022-01-04] MEDS: HALOPERIDOL 5 MG TABLET PO PRN (16:22)
[2022-01-04 17:36] LABS: GLUCOMETER DEV NAME(LOC) 3E.C; GLUCOSE,POINT OF CARE 107 MG/DL (70-110)
[2022-01-04 20:25] LABS: GLUCOMETER DEV NAME(LOC) 3E.C; GLUCOSE,POINT OF CARE 136 MG/DL (70-110)
[2022-01-05 06:41] LABS: GLUCOMETER DEV NAME(LOC) 3E.C; GLUCOSE,POINT OF CARE 114 MG/DL (70-110)
[2022-01-05 08:50] VITALS: BP 132/71
[2022-01-05] MEDS: IBUPROFEN 600 MG TABLET PO PRN (08:53)
[2022-01-05] MEDS: FUROSEMIDE 20 MG TABLET PO SCH (08:53)
[2022-01-05] MEDS: LORazepam 2 MG TABLET PO PRN ×2 (08:53→17:53)
[2022-01-05] MEDS: LISINOPRIL 20 MG TABLET PO SCH (08:53)
[2022-01-05] MEDS: ESCITALOPRAM OXALATE 10 MG TABLET PO SCH (08:53)
[2022-01-05] MEDS: HALOPERIDOL 5 MG TABLET PO PRN (08:53)
[2022-01-05] MEDS: TOPIRAMATE 100 MG TABLET PO SCH ×2 (08:53→17:47)
[2022-01-05] MEDS: AmLODIPine BESYLATE 5 MG TABLET PO SCH (08:53)
[2022-01-05] MEDS: ASPIRIN 81 MG CHEWABLE TABLET PO SCH (08:53)
[2022-01-05] MEDS: LevETIRAcetam 500 MG TABLET PO SCH ×2 (08:53→17:47)
[2022-01-05 11:51] LABS: GLUCOMETER DEV NAME(LOC) 3E.C; GLUCOSE,POINT OF CARE 73 MG/DL (70-110)
[2022-01-05] MEDS: INSULIN LISPRO 100 UNITS/ML SQ PRN ×2 (12:51→18:15)
[2022-01-05 17:01] VITALS: BP 103/56
[2022-01-05 17:16] LABS: GLUCOMETER DEV NAME(LOC) 3E.C; GLUCOSE,POINT OF CARE 113 MG/DL (70-110)
[2022-01-05 17:57] LABS: GLUCOMETER DEV NAME(LOC) 3E.C; GLUCOSE,POINT OF CARE 101 MG/DL (70-110)
[2022-01-05 18:43] LABS: BASOPHILS % (AUTO) 0.8 % (0.0-2.0); EOSINOPHILS % (AUTO) 3.2 % (1.0-6.0); HEMATOCRIT 45.3 % (36-46); HEMOGLOBIN 14.3 g/dL (12.0-16.0); LYMPHOCYTES # (AUTO) 3.6 K/uL (1.0-4.8); LYMPHOCYTES % (AUTO) 32.6 % (22.0-44.0); MEAN CORPUSCULAR HEMOGLOBIN 25.3 pg (26.0-34.0); MEAN CORPUSCULAR HGB CONC 31.7 G/dL (31.0-37.0); MEAN CORPUSCULAR VOLUME 80 fL (80-100); MONOCYTES # (AUTO) 0.5 K/uL (0.1-1.0); MONOCYTES % (AUTO) 4.8 % (2.0-9.0); NEUTROPHILS # (AUTO) 6.4 K/uL (1.8-7.7); NEUTROPHILS % (AUTO) 58.6 % (40.0-70.0); PLATELET COUNT (AUTO) 394 K/uL (150-450); RED BLOOD CELL COUNT(AUTO) 5.67 MIL/uL (4.00-5.20); RED CELL DISTRIBUTION WIDTH 16.1 % (11.5-14.5)
[2022-01-05 18:53] LABS: ANION GAP 10 mmol/L (8-16); CALCIUM, TOTAL 9.8 mg/dL (8.8-10.5); CARBON DIOXIDE 24 mmol/L (22-29); CHLORIDE 101 mmol/L (98-107); CREATININE 1.02 mg/dL (0.60-1.30); GLUCOSE,RANDOM 131 mg/dL (70-110); POTASSIUM 4.1 mmol/L (3.5-5.1); SODIUM SERUM 135 mmol/L (136-145); UREA NITROGEN, BLOOD 20 mg/dL (7-18)
[2022-01-05 18:55] LABS: GLOMERULAR FILTR. RATE CALC > 60 mL/min (>60)
[2022-01-05 18:58] LABS: ALANINE AMINOTRANSFERASE 33 U/L (12-78); ALBUMIN 3.5 g/dL (3.4-5.0); ALKALINE PHOSPHATASE 141 U/L (46-116); ASPARTATE AMINOTRANSFERASE 21 U/L (15-37); BILIRUBIN,TOTAL 0.1 mg/dL (0.1-1.0); PHOSPHORUS 4.1 mg/dL (2.5-4.9); TOTAL PROTEIN, SERUM 8.2 g/dL (6.4-8.2)
[2022-01-05 20:21] LABS: GLUCOMETER DEV NAME(LOC) 3E.C; GLUCOSE,POINT OF CARE 117 MG/DL (70-110)
[2022-01-06 06:41] LABS: GLUCOMETER DEV NAME(LOC) 3E.C; GLUCOSE,POINT OF CARE 106 MG/DL (70-110)
[2022-01-06] MEDS: TOPIRAMATE 100 MG TABLET PO SCH ×2 (07:57→17:21)
[2022-01-06] MEDS: AmLODIPine BESYLATE 5 MG TABLET PO SCH (07:57)
[2022-01-06] MEDS: FUROSEMIDE 20 MG TABLET PO SCH (07:57)
[2022-01-06] MEDS: LISINOPRIL 20 MG TABLET PO SCH (07:57)
[2022-01-06] MEDS: ESCITALOPRAM OXALATE 10 MG TABLET PO SCH (07:57)
[2022-01-06] MEDS: ASPIRIN 81 MG CHEWABLE TABLET PO SCH (07:58)
[2022-01-06] MEDS: LevETIRAcetam 500 MG TABLET PO SCH ×2 (07:58→17:21)
[2022-01-06 08:11] VITALS: BP 122/78
[2022-01-06 12:26] LABS: GLUCOMETER DEV NAME(LOC) 3E.C; GLUCOSE,POINT OF CARE 134 MG/DL (70-110)
[2022-01-06 16:05] VITALS: BP 131/81
[2022-01-06 17:01] LABS: GLUCOMETER DEV NAME(LOC) 3E.C; GLUCOSE,POINT OF CARE 108 MG/DL (70-110)
[2022-01-06] MEDS ORDERED: ESCI10 PO (17:59)
[2022-01-06] MEDS ORDERED: LEVE500T8 PO ×2 (20:05→20:08)
[2022-01-06 20:35] LABS: GLUCOMETER DEV NAME(LOC) 3E.C; GLUCOSE,POINT OF CARE 146 MG/DL (70-110)
[2022-01-06] MEDS: INSULIN LISPRO 100 UNITS/ML SQ PRN (21:07)
[2022-01-06 23:35] VITALS: BP 135/78
[2022-01-06] MEDS: IBUPROFEN 600 MG TABLET PO PRN (23:41)
[2022-01-06] MEDS: LORazepam 2 MG TABLET PO PRN (23:41)
[2022-01-07] MEDS: ZOLPIDEM TARTRATE 10 MG TABLET PO PRN (02:01)
[2022-01-07 06:46] LABS: GLUCOMETER DEV NAME(LOC) 3E.C; GLUCOSE,POINT OF CARE 128 MG/DL (70-110)
[2022-01-07] MEDS: FUROSEMIDE 20 MG TABLET PO SCH (07:38)
[2022-01-07] MEDS: ESCITALOPRAM OXALATE 10 MG TABLET PO SCH (07:38)
[2022-01-07] MEDS: ASPIRIN 81 MG CHEWABLE TABLET PO SCH (07:39)
[2022-01-07] MEDS: AmLODIPine BESYLATE 5 MG TABLET PO SCH (07:39)
[2022-01-07] MEDS: TOPIRAMATE 100 MG TABLET PO SCH (07:39)
[2022-01-07] MEDS: LISINOPRIL 20 MG TABLET PO SCH (07:39)
[2022-01-07] MEDS: LevETIRAcetam 500 MG TABLET PO SCH (07:39)
== END 2022-01-07 07:55 | disposition home or self-care (01) | DRG 754 ==
LOC: EMS 09:05 → 3EC 16:33
PROVIDERS: ADMIT Psychiatry & Neurology Psychiatry; ATTEND Psychiatry & Neurology Psychiatry
DX: F32.9 Major depressive disorder, single episode, unspecified (principal); E11.9 Type 2 diabetes mellitus without complications; R45.851 Suicidal ideations; G40.909 Epilepsy, unspecified, not intractable, without status epilepticus; F41.9 Anxiety disorder, unspecified; E66.9 Obesity, unspecified; G47.00 Insomnia, unspecified; I10 Essential (primary) hypertension; K21.9 Gastro-esophageal reflux disease without esophagitis; Z20.822 Contact with and (suspected) exposure to COVID-19; K59.00 Constipation, unspecified; Z59.00 Homelessness unspecified; Z83.3 Family history of diabetes mellitus; Z91.14 Patient's other noncompliance with medication regimen; Z82.49 Family history of ischemic heart disease and other diseases of the circulatory system; Z91.199 Patient's noncompliance with other medical treatment and regimen due to unspecified reason; Z79.899 Other long term (current) drug therapy; Z88.8 Allergy status to other drugs, medicaments and biological substances; Z79.82 Long term (current) use of aspirin; Z90.49 Acquired absence of other specified parts of digestive tract
CPT/HCPCS: 80053; 80061; 80201; 82962; 83036; 83735; 84100; 84439; 84443; 84702; 85025; 99285; G0480; G0482

== ENCOUNTER 2022-07-15 03:02 | Emergency (ER) | payer MEDICAID, OTHER ==
[~2022-07-15] VITALS: Ht 167.6 cm; Wt 137.0 kg
[~2022-07-15 03:02] MED LIST changes: +ESCI10 PO; +FURO20TA4 PO; -FURO40 PO; -HYDR-3831 PO; -LEVE500T20 PO; +LEVE500T8 PO; +LISI20TA24 PO
[2022-07-15 03:30] LABS: BASOPHILS % (AUTO) 1.2 % (0.0-2.0); EOSINOPHILS % (AUTO) 5.2 % (1.0-6.0); HEMATOCRIT 39.5 % (36-46); HEMOGLOBIN 12.5 g/dL (12.0-16.0); LYMPHOCYTES # (AUTO) 3.8 K/uL (1.0-4.8); LYMPHOCYTES % (AUTO) 41.7 % (22.0-44.0); MEAN CORPUSCULAR HEMOGLOBIN 25.4 pg (26.0-34.0); MEAN CORPUSCULAR HGB CONC 31.7 G/dL (31.0-37.0); MEAN CORPUSCULAR VOLUME 80 fL (80-100); MONOCYTES # (AUTO) 0.5 K/uL (0.1-1.0); MONOCYTES % (AUTO) 5.1 % (2.0-9.0); NEUTROPHILS # (AUTO) 4.2 K/uL (1.8-7.7); NEUTROPHILS % (AUTO) 46.8 % (40.0-70.0); PLATELET COUNT (AUTO) 371 K/uL (150-450); RED BLOOD CELL COUNT(AUTO) 4.94 MIL/uL (4.00-5.20); RED CELL DISTRIBUTION WIDTH 16.6 % (11.5-14.5)
[2022-07-15 03:40] LABS: ANION GAP 10 mmol/L (8-16); CARBON DIOXIDE 25 mmol/L (22-29); CHLORIDE 103 mmol/L (98-107); GLUCOSE,RANDOM 119 mg/dL (70-110); POTASSIUM 3.9 mmol/L (3.5-5.1); SODIUM SERUM 138 mmol/L (136-145)
[2022-07-15 03:41] LABS: CALCIUM, TOTAL 9.4 mg/dL (8.8-10.5); GLOMERULAR FILTR. RATE CALC > 60 mL/min (>60)
[2022-07-15 03:46] LABS: ALANINE AMINOTRANSFERASE 19 U/L (12-78); ALBUMIN 3.5 g/dL (3.4-5.0); ALKALINE PHOSPHATASE 109 U/L (46-116); ASPARTATE AMINOTRANSFERASE 19 U/L (15-37); BILIRUBIN,TOTAL 0.3 mg/dL (0.1-1.0); CREATINE KINASE, TOTAL ONLY 214 U/L (26-192); TOTAL PROTEIN, SERUM 7.9 g/dL (6.4-8.2)
[2022-07-15 03:48] LABS: B-TYPE NATRIURETIC PEPTIDE 27 pg/mL (0-100)
[2022-07-15 05:37] VITALS: BP 144/76
[2022-07-15 06:06] LABS: LIPASE 84 U/L (73-393)
[2022-07-15 06:40] LABS: APPEARANCE,URINE CLEAR (CLEAR); BILIRUBIN,URINE NEGATIVE (NEGATIVE); GLUCOSE, URINE (UA) NEGATIVE (NEGATIVE); KETONES,URINE NEGATIVE (NEGATIVE); LEUKOCYTE ESTERASE ,URINE NEGATIVE (NEGATIVE); NITRATE,URINE NEGATIVE (NEGATIVE); OCCULT BLOOD,URINE SMALL (NEGATIVE); PH,URINE 7.5 (5.0-8.0); PROTEIN,URINE NEGATIVE (NEGATIVE); SPECIFIC GRAVITIY, URINE 1.012 (1.003-1.030); UROBILINOGEN,URINE <=1.0 mg/dL (<=1.0)
[2022-07-15 06:45] LABS: AMPHET/METH SCREEN,URINE POSITIVE (NEGATIVE); BARBITURATE SCREEN, URINE NEGATIVE (NEGATIVE); BENZODIAZEPINES SCREEN,URINE NEGATIVE (NEGATIVE); CANNABINOID SCREEN,URINE NEGATIVE (NEGATIVE); COCAINE SCREEN,URINE NEGATIVE (NEGATIVE); METHADONE SCREEN, URINE NEGATIVE (NEGATIVE); OPIATE SCREEN,URINE NEGATIVE (NEGATIVE); PHENCYCLIDINE SCREEN,URINE POSITIVE (NEGATIVE)
[2022-07-15] MEDS ORDERED: LORazepam 1 MG TABLET PO ONE (07:00)
[2022-07-15] MEDS ORDERED: MAG HYDROX/AL HYDROX/SIMETH ES 30 ML SUSPENSION UDCUP PO ONE (07:00)
[2022-07-15] MEDS ORDERED: LORazepam 0.5 MG TABLET PO ONE (07:00)
[2022-07-15 07:03] LABS: BACTERIA,URINE None Seen /HPF (None Seen); RBC,URINE 0-2 /HPF (0-2); SQUAMOUS EPITHELIAL CELL,UR Few /LPF (None Seen); WBC,URINE None Seen /HPF (0-5); YEAST,URINE None Seen /HPF (None Seen)
== END 2022-07-15 07:58 | disposition home or self-care (01) ==
LOC: EMS 03:03
DX: F15.10 Other stimulant abuse, uncomplicated (principal); R10.84 Generalized abdominal pain; I11.0 Hypertensive heart disease with heart failure; I50.9 Heart failure, unspecified; E11.9 Type 2 diabetes mellitus without complications; Z90.49 Acquired absence of other specified parts of digestive tract; Z98.890 Other specified postprocedural states
CPT/HCPCS: 99285; 71250; 71045; 80053; 82550; 83690; 83880; 84484; 84703; 85025; 36415; 72192; 74150; 93005; 81001; 80307 ×2; G0480

== ENCOUNTER 2022-07-24 10:06 | Emergency (ER) | payer MEDICAID ==
[~2022-07-24] VITALS: Ht 170.2 cm; Wt 154.1 kg
[2022-07-24] MEDS ORDERED: DiphenhydrAMINE HCL 25 MG CAPSULE PO ONE (12:30)
[2022-07-24] MEDS ORDERED: TOPI100T37 PO (12:44)
[2022-07-24] MEDS ORDERED: AMLO5TAB66 PO (12:44)
[2022-07-24] MEDS ORDERED: DIPH50CA37 PO (12:44)
[2022-07-24] MEDS ORDERED: ESCI10 PO (12:44)
[2022-07-24] MEDS ORDERED: FURO20TA4 PO (12:44)
[2022-07-24] MEDS ORDERED: LISI20TA24 PO (12:44)
[2022-07-24] MEDS ORDERED: LEVE500T8 PO (12:44)
[2022-07-24] MEDS ORDERED: ASPI-1450 PO (12:44)
[2022-07-24] MEDS ORDERED: PERM60CR19 TP (12:44)
[2022-07-24 13:02] VITALS: BP 152/82
== END 2022-07-24 13:06 | disposition still patient (30) ==
LOC: EMS 10:09
DX: L30.9 Dermatitis, unspecified (principal); G40.909 Epilepsy, unspecified, not intractable, without status epilepticus; I11.0 Hypertensive heart disease with heart failure; I50.9 Heart failure, unspecified; E11.9 Type 2 diabetes mellitus without complications; Z90.49 Acquired absence of other specified parts of digestive tract; Z98.890 Other specified postprocedural states; Z88.8 Allergy status to other drugs, medicaments and biological substances
CPT/HCPCS: 99282; Z7502; Z7610

== ENCOUNTER 2022-08-19 03:07 | Emergency (ER) | payer MEDICAID ==
[~2022-08-19] VITALS: Ht 167.6 cm; Wt 137.0 kg
[~2022-08-19 03:07] MED LIST changes: +DIPH50CA37 PO; +PERM60CR19 TP
[2022-08-19 03:23] VITALS: TEMP 97.8
[2022-08-19] MEDS ORDERED: LevETIRAcetam 1,000 MG in DEXTROSE 5%-WATER 100 ML IV ONE (03:45)
[2022-08-19 04:28] LABS: BASOPHILS % (AUTO) 0.9 % (0.0-2.0); EOSINOPHILS % (AUTO) 4.8 % (1.0-6.0); HEMATOCRIT 34.5 % (36-46); HEMOGLOBIN 10.9 g/dL (12.0-16.0); LYMPHOCYTES # (AUTO) 2.5 K/uL (1.0-4.8); LYMPHOCYTES % (AUTO) 26.9 % (22.0-44.0); MEAN CORPUSCULAR HEMOGLOBIN 25.4 pg (26.0-34.0); MEAN CORPUSCULAR HGB CONC 31.5 G/dL (31.0-37.0); MEAN CORPUSCULAR VOLUME 81 fL (80-100); MONOCYTES # (AUTO) 0.5 K/uL (0.1-1.0); NEUTROPHILS # (AUTO) 5.9 K/uL (1.8-7.7); NEUTROPHILS % (AUTO) 62.4 % (40.0-70.0); PLATELET COUNT (AUTO) 290 K/uL (150-450); RED BLOOD CELL COUNT(AUTO) 4.27 MIL/uL (4.00-5.20)
[2022-08-19 04:35] LABS: ANION GAP 10 mmol/L (8-16); CALCIUM, TOTAL 9.1 mg/dL (8.8-10.5); CARBON DIOXIDE 27 mmol/L (22-29); CHLORIDE 103 mmol/L (98-107); CREATININE 0.98 mg/dL (0.60-1.30); GLOMERULAR FILTR. RATE CALC > 60 mL/min (>60); GLUCOSE,RANDOM 108 mg/dL (70-110); POTASSIUM 3.8 mmol/L (3.5-5.1); SODIUM SERUM 140 mmol/L (136-145)
[2022-08-19 04:41] LABS: ALANINE AMINOTRANSFERASE 23 U/L (12-78); ALBUMIN 3.2 g/dL (3.4-5.0); ALKALINE PHOSPHATASE 98 U/L (46-116); ASPARTATE AMINOTRANSFERASE 15 U/L (15-37); BILIRUBIN,TOTAL 0.2 mg/dL (0.1-1.0)
[2022-08-19] MEDS ORDERED: FUROSEMIDE 20 MG TABLET PO ONE (09:00)
[2022-08-19] MEDS ORDERED: LISINOPRIL 10 MG TABLET PO ONE (09:00)
[2022-08-19 10:24] VITALS: BP 176/84; PULSE 76; RESP 16
== END 2022-08-19 16:21 | disposition home or self-care (01) ==
LOC: EMS 03:08
DX: G40.909 Epilepsy, unspecified, not intractable, without status epilepticus (principal); I11.0 Hypertensive heart disease with heart failure; I50.9 Heart failure, unspecified; E11.9 Type 2 diabetes mellitus without complications; Z90.49 Acquired absence of other specified parts of digestive tract; Z98.890 Other specified postprocedural states; Z88.8 Allergy status to other drugs, medicaments and biological substances
CPT/HCPCS: 99291; 96365; 80053; 83880; 84484; 85025; 36415; 93005; J0712; J7060

== ENCOUNTER 2022-11-01 09:08 | Inpatient (IN) | payer MEDICAID ==
[~2022-11-01] VITALS: Ht 172.7 cm; Wt 145.8 kg
[2022-11-01] MEDS ORDERED: AmLODIPine BESYLATE 5 MG TABLET PO ONE (10:15)
[2022-11-01] MEDS ORDERED: LISINOPRIL 10 MG TABLET PO ONE (10:15)
[2022-11-01 11:29] LABS: BASOPHILS % (AUTO) 0.2 % (0.0-2.0); EOSINOPHILS % (AUTO) 5.8 % (1.0-6.0); HEMATOCRIT 35.5 % (36-46); LYMPHOCYTES # (AUTO) 2.7 K/uL (1.0-4.8); LYMPHOCYTES % (AUTO) 28.7 % (22.0-44.0); MEAN CORPUSCULAR HEMOGLOBIN 25.2 pg (26.0-34.0); MEAN CORPUSCULAR HGB CONC 31.1 G/dL (31.0-37.0); MEAN CORPUSCULAR VOLUME 81 fL (80-100); MONOCYTES # (AUTO) 0.4 K/uL (0.1-1.0); MONOCYTES % (AUTO) 4.4 % (2.0-9.0); NEUTROPHILS # (AUTO) 5.7 K/uL (1.8-7.7); NEUTROPHILS % (AUTO) 60.9 % (40.0-70.0); PLATELET COUNT (AUTO) 386 K/uL (150-450); RED BLOOD CELL COUNT(AUTO) 4.38 MIL/uL (4.00-5.20); WHITE BLOOD COUNT (AUTO) 9.3 K/uL (4.5-11.0)
[2022-11-01 11:44] LABS: TROPONIN I-HIGH SENSITIVITY 15 ng/L (<51)
[2022-11-01 11:46] LABS: APPEARANCE,URINE CLEAR (CLEAR); BILIRUBIN,URINE NEGATIVE (NEGATIVE); COLOR,URINE LIGHT YELLOW (YELLOW); GLUCOSE, URINE (UA) NEGATIVE (NEGATIVE); KETONES,URINE NEGATIVE (NEGATIVE); LEUKOCYTE ESTERASE ,URINE NEGATIVE (NEGATIVE); NITRATE,URINE NEGATIVE (NEGATIVE); OCCULT BLOOD,URINE NEGATIVE (NEGATIVE); PROTEIN,URINE NEGATIVE (NEGATIVE); SPECIFIC GRAVITIY, URINE 1.015 (1.003-1.030); UROBILINOGEN,URINE <=1.0 mg/dL (<=1.0)
[2022-11-01 11:46] LABS: B-TYPE NATRIURETIC PEPTIDE 63 pg/mL (0-100)
[2022-11-01 11:49] LABS: INR 0.9 (0.9-1.1); PROTHROMBIN TIME 9.8 SEC (9.4-11.6)
[2022-11-01 11:55] LABS: ANION GAP 4 mmol/L (8-16); CALCIUM, TOTAL 8.9 mg/dL (8.8-10.5); CARBON DIOXIDE 29 mmol/L (22-29); CHLORIDE 104 mmol/L (98-107); CREATININE 0.92 mg/dL (0.60-1.30); GLOMERULAR FILTR. RATE CALC > 60 mL/min (>60); GLUCOSE,RANDOM 96 mg/dL (70-110); POTASSIUM 3.7 mmol/L (3.5-5.1); SODIUM SERUM 137 mmol/L (136-145); UREA NITROGEN, BLOOD 16 mg/dL (7-18)
[2022-11-01 12:19] LABS: ALANINE AMINOTRANSFERASE 23 U/L (12-78); ALKALINE PHOSPHATASE 104 U/L (46-116); ASPARTATE AMINOTRANSFERASE 18 U/L (15-37); BILIRUBIN,TOTAL 0.3 mg/dL (0.1-1.0); CREATINE KINASE, TOTAL ONLY 110 U/L (26-192); TOTAL PROTEIN, SERUM 7.6 g/dL (6.4-8.2)
[2022-11-01] MEDS ORDERED: HydrALAZINE HCL 20 MG/ML VIAL IVP ONE (13:30)
[2022-11-01] MEDS ORDERED: ONDANSETRON HCL 4 MG/2 ML VIAL IVP PRN (13:45)
[2022-11-01] MEDS ORDERED: BISACODYL 10 MG RECTAL RECTAL SUPPOSITORY PR PRN (13:45)
[2022-11-01 13:53] LABS: ABG BASE EXCESS 1.9 mmol/L (-2.0-3.0); ABG CARBOXYHEMOGLOBIN 1.4 % (0.0-1.5); ABG HCO3 25.7 mmol/L (22.0-26.0); ABG METHEMOGLOBIN 0.2 % (0.0-1.5); ABG OXYGEN CONTENT 16.6 mL/dL (15.0-23.0); ABG OXYGEN SATURATION 98.2 % (95.0-98.0); ABG OXYHEMOGLOBIN 96.6 % (94.0-100.0); ABG PCO2 47 mmHg (35-45); ABG TOTAL HEMOGLOBIN 12.1 G/dL (12.0-18.0); ALLEN TEST, BLOOD GAS POS; O2 DEVICE,BLOOD GAS NC (ROOM AIR); PO2, ARTERIAL BG 112.5 mmHg (88.0-96.0); SITE, BLOOD GAS RT BRACHIAL; SOURCE, BLOOD GAS ARTERIAL; TEMPERATURE, FAHRENHEIT, BG 98.4 FAHREN (96.0-98.6)
[2022-11-01] MEDS ORDERED: SODIUM CHLORIDE 0.9% 1,000 ML IV ONE (14:00)
[2022-11-01 14:50] VITALS: PULSE 82; RESP 31; O2SAT 99
[2022-11-01 14:52] VITALS: PULSE 82; RESP 31; O2SAT 99
[2022-11-01 15:04] LABS: COVID AG,FIA SOURCE NASAL SWAB
[2022-11-01] MEDS: HEPARIN SODIUM,PORCINE 5,000 UNITS/ML VIAL SQ SCH (15:06)
[2022-11-01 15:25] LABS: SARS-COV2 (COVID) ANTIGEN,FIA Negative (Negative)
[2022-11-01] MEDS: ACETAMINOPHEN 325 MG TABLET PO PRN (17:43)
[2022-11-01 18:21] LABS: PH,URINE DRUG SCREEN 7.5 (5.0-8.0)
[2022-11-01 18:28] LABS: ALCOHOL, URINE DRUG SCREEN NEGATIVE (NEGATIVE); AMPHET/METH SCREEN,URINE POSITIVE (NEGATIVE); BARBITURATE SCREEN, URINE NEGATIVE (NEGATIVE); BENZODIAZEPINES SCREEN,URINE NEGATIVE (NEGATIVE); CANNABINOID SCREEN,URINE NEGATIVE (NEGATIVE); COCAINE SCREEN,URINE NEGATIVE (NEGATIVE); METHADONE SCREEN, URINE NEGATIVE (NEGATIVE); OPIATE SCREEN,URINE NEGATIVE (NEGATIVE); PHENCYCLIDINE SCREEN,URINE POSITIVE (NEGATIVE)
[2022-11-01] MEDS ORDERED: PNEUMOCOCCAL VACCINE POLYVALENT 0.5 ML SYRINGE [PPSV23] IM. ONE (22:15)
[2022-11-02] VITALS (8 sets, daily range): BP systolic 111–184; BP diastolic 54–106; PULSE 85–89; RESP 18–20; TEMP 97.7–98.6
[2022-11-02] MEDS: HEPARIN SODIUM,PORCINE 5,000 UNITS/ML VIAL SQ SCH ×4 (00:23→23:01)
[2022-11-02] MEDS: ACETAMINOPHEN 325 MG TABLET PO PRN ×2 (01:47→14:18)
[2022-11-02] MEDS ORDERED: DiphenhydrAMINE HCL 50 MG/ML VIAL IVP ONE (04:45)
[2022-11-02] MEDS: HydrALAZINE HCL 10 MG TABLET PO PRN ×2 (05:00→16:52)
[2022-11-02] MEDS ORDERED: PANTOPRAZOLE SODIUM 40 MG/VIAL IVP SCH (09:00)
[2022-11-02 09:07] LABS: GLUCOMETER DEV NAME(LOC) 5N.2C; GLUCOSE,POINT OF CARE 112 MG/DL (70-110)
[2022-11-02 14:16] LABS: GLUCOMETER DEV NAME(LOC) 5S.1B; GLUCOSE,POINT OF CARE 110 MG/DL (70-110)
[2022-11-02 20:21] LABS: GLUCOMETER DEV NAME(LOC) 5S.2C; GLUCOSE,POINT OF CARE 119 MG/DL (70-110)
[2022-11-02 21:01] LABS: GLUCOMETER DEV NAME(LOC) 6S.1B; GLUCOSE,POINT OF CARE 116 MG/DL (70-110)
[2022-11-03 05:35] VITALS: BP 161/75; PULSE 87; RESP 19; TEMP 98.1
[2022-11-03 05:41] LABS: GLUCOMETER DEV NAME(LOC) 6N.2B; GLUCOSE,POINT OF CARE 126 MG/DL (70-110)
[2022-11-03 08:00] VITALS: BP 129/75; PULSE 89; RESP 20; TEMP 98.4
[2022-11-03] MEDS: HEPARIN SODIUM,PORCINE 5,000 UNITS/ML VIAL SQ SCH ×2 (08:38→16:00)
[2022-11-03] MEDS ORDERED: PANTOPRAZOLE SODIUM 40 MG DR TABLET PO SCH ×2 (09:00)
[2022-11-03] MEDS ORDERED: FURO20TA4 PO (13:11)
[2022-11-03] MEDS ORDERED: AMLO5TAB66 PO (13:11)
[2022-11-03] MEDS ORDERED: LISI20TA24 PO (13:11)
[2022-11-03] MEDS ORDERED: ASPI-1450 PO (13:11)
[2022-11-03] MEDS ORDERED: GUAIFDM PO (13:12)
[2022-11-03] MEDS ORDERED: AZIT250T9 PO (13:12)
[2022-11-03 17:12] LABS: GLUCOMETER DEV NAME(LOC) 6N.2B; GLUCOSE,POINT OF CARE 99 MG/DL (70-110)
[2022-11-06] MEDS ORDERED: METF-1211 PO (09:21)
[2022-11-06] MEDS ORDERED: LEVE500T20 PO (09:21)
[2022-11-06] MEDS ORDERED: ESCI-8 PO (13:43)
[2022-11-09] MEDS ORDERED: AMOX1TAB15 PO (10:42)
== END 2022-11-03 16:50 | disposition home or self-care (01) | DRG 52 ==
LOC: EMS 09:11 → AHU 15:23 → 5S 18:32 → 6S 11-02 20:18
PROVIDERS: ADMIT Internal Medicine; ATTEND Internal Medicine
PROC: 5A09357 Assistance with Respiratory Ventilation, Less than 24 Consecutive Hours, Continuous Positive Airway Pressure (ICD-10-PCS; principal; 2022-11-01)
DX: G92.8 Other toxic encephalopathy (principal); M32.9 Systemic lupus erythematosus, unspecified; I50.9 Heart failure, unspecified; E11.9 Type 2 diabetes mellitus without complications; E66.01 Morbid (severe) obesity due to excess calories; I11.0 Hypertensive heart disease with heart failure; F15.10 Other stimulant abuse, uncomplicated; F16.10 Hallucinogen abuse, uncomplicated; I16.0 Hypertensive urgency; G40.909 Epilepsy, unspecified, not intractable, without status epilepticus; Z20.822 Contact with and (suspected) exposure to COVID-19; J40 Bronchitis, not specified as acute or chronic; Z79.899 Other long term (current) drug therapy; Z68.42 Body mass index [BMI] 45.0-49.9, adult; Z86.73 Personal history of transient ischemic attack (TIA), and cerebral infarction without residual deficits; Z86.718 Personal history of other venous thrombosis and embolism; Z88.1 Allergy status to other antibiotic agents; Z90.49 Acquired absence of other specified parts of digestive tract
CPT/HCPCS: 36600; 70450; 71045; 80053; 80307; 81003; 82550; 82805; 82962; 83880; 84484; 84703; 85025; 85610; 85730; 92610; 93005; 93306; 94660; 99285; C9113; J0360; J1200; J1644; J2405; 36415-L1; 36415-TC

== ENCOUNTER 2024-10-18 11:24 | Emergency (ER) | payer MEDICAID ==
[~2024-10-18] VITALS: Ht 170.2 cm; Wt 120.9 kg
[~2024-10-18 11:24] MED LIST changes: +AMOX1TAB15 PO; -ASPI-1450 PO; +ESCI-8 PO; -ESCI10 PO; +GUAIFDM PO; +LEVE-71 PO; -LEVE500T8 PO; +METF-1211 PO; -PERM60CR19 TP; +TOPI-258 PO; -TOPI100T37 PO
[2024-10-18 11:36] VITALS: TEMP 98.2
[2024-10-18 12:00] VITALS: BP 111/64; PULSE 79; RESP 16; O2SAT 97
[2024-10-18 12:27] LABS: GLUCOMETER DEV NAME(LOC) ER.7; GLUCOSE,POINT OF CARE 108 MG/DL (70-110)
[2024-10-18 12:33] LABS: APPEARANCE,URINE CLEAR (CLEAR); GLUCOSE, URINE (UA) NEGATIVE (NEGATIVE); LEUKOCYTE ESTERASE ,URINE LARGE (NEGATIVE); NITRATE,URINE NEGATIVE (NEGATIVE); OCCULT BLOOD,URINE TRACE (NEGATIVE); SPECIFIC GRAVITIY, URINE 1.009 (1.003-1.030)
[2024-10-18 12:34] LABS: HCG,QUAL URINE NEGATIVE (NEGATIVE)
[2024-10-18 13:04] LABS: SQUAMOUS EPITHELIAL CELL,UR Moderate /LPF (None Seen)
[2024-10-18 13:22] LABS: PLATELET COUNT (AUTO) 353 K/uL (150-450); RED BLOOD CELL COUNT(AUTO) 4.69 MIL/uL (4.00-5.20); RED CELL DISTRIBUTION WIDTH 17.0 % (11.5-14.5); WHITE BLOOD COUNT (AUTO) 8.4 K/uL (4.5-11.0)
[2024-10-18] MEDS ORDERED: CEPH-558 PO (13:34)
[2024-10-18 13:35] LABS: CREATININE 0.95 mg/dL (0.60-1.30); GLOMERULAR FILTR. RATE CALC > 60 mL/min (>60); SODIUM SERUM 138 mmol/L (136-145)
[2024-10-18 13:36] LABS: GLUCOSE,RANDOM 78 mg/dL (70-110); UREA NITROGEN, BLOOD 6 mg/dL (7-18)
[2024-10-18 13:37] LABS: CALCIUM, TOTAL 9.1 mg/dL (8.8-10.5)
[2024-10-18 13:42] LABS: BAND NEUTROPHILS % (MANUAL) 1 % (0-5); LYMPHOCYTES % (MANUAL) 25 % (22-44); MONOCYTES % (MANUAL) 1 % (2-9); SEGMENTED NEUTROPHILS % 73 % (40-70)
[2024-10-18 13:43] LABS: RBC MORPHOLOGY COMMENT NORMAL RBC MORPH
[2024-10-18] MEDS ORDERED: IOHEXOL 350 MG/ML 100 ML VIAL ONE (14:38)
[2024-10-18] MEDS ORDERED: SODIUM CHLORIDE 0.9% 0 ML ONE (14:38)
== END 2024-10-18 14:30 | disposition left against medical advice (07) ==
LOC: EMS 11:28
DX: N39.0 Urinary tract infection, site not specified (principal); R30.0 Dysuria; R35.0 Frequency of micturition; E11.9 Type 2 diabetes mellitus without complications; F32.A Depression, unspecified; I50.9 Heart failure, unspecified; I11.0 Hypertensive heart disease with heart failure; Z86.718 Personal history of other venous thrombosis and embolism; Z86.73 Personal history of transient ischemic attack (TIA), and cerebral infarction without residual deficits; Z88.1 Allergy status to other antibiotic agents; Z90.49 Acquired absence of other specified parts of digestive tract; Z79.899 Other long term (current) drug therapy
CPT/HCPCS: 80048; 81001; 82962; 84703; 85007; 85027; 86140; 87077; 87086; 87186; 99283; J7050